=== PATIENT | female | born 1955 | race Caucasian/White ===

== ENCOUNTER 2024-06-21 18:42 | Inpatient (IN) | payer MEDICARE, SELFPAY ==
[2024-06-21] VITALS (11 sets, daily range): BP systolic 83–129; BP diastolic 48–67; BMI 27.6; BMI 26.3
[2024-06-21 14:17] LABS: COVID-19 Antigen Negative (Negative)
--- NOTE | 2024-06-21 14:46 | ED.GENMED ---
History of Present Illness
General
Chief Complaint: Fever
Source: patient
Exam Limitations: none
Time Seen by Provider: 06/21/24 14:34
History of Present Illness
History of Present Illness:
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 Temperature has been as high as 101.9. She notes a foul smelling urine but no dysuria. No history of kidney stone. She has a history of sick sinus syndrome and has a
pacemaker but not anticoagulated. 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. No cough chest pain or shortness of breath.
Phy Exam
Physical Exam
Physical Exam:
General: Well-appearing female no acute respiratory distress
HEENT: Normocephalic atraumatic
Heart: Regular rate and rhythm
Lungs: Clear no wheeze
Abdomen is soft but there is some tenderness over the flanks bilaterally
Extremities: No cyanosis or edema
Skin: Warm no rash
Course
Orders/Labs/Results
Orders:
Orders
06/21/24 13:54
COVID-19 Antigen Urgent
Source: Nasal Swab
Influenza A+B Rapid Molecular Urgent
[facility]EL[facility] Source: Nasal Swab
Specimen Description:
06/21/24 14:43
CT Abd/pelvis W Iv Cont Urgent
Comment:
Reason For Exam: flank pain, fever
0.9% Sodium Chloride 1000 ml [Nss] 1,000 ml IV BOLUS
Acetaminophen [Tylenol] 1,000 mg PO NOW STA
06/21/24 14:45
Blood Culture Q30M
MARIELLE Source: Blood/Venous
Specimen Description:
06/21/24 14:55
Complete Blood Count/With Diff Urgent
Comprehensive Metabolic Panel Urgent
Urinalysis Reflex To Culture Urgent
Date Specimen was Collected: 06/21/24
Time Specimen was Collected: 14:48
Urine Microscopic Reflex Cult Urgent
Urine Culture Urgent
MARIELLE Source: U
Specimen Description:
Date Specimen was Collected: 06/21/24
Time Specimen was Collected: 14:48
06/21/24 15:15
Blood Culture Q30M
MAR[facility]ELLE Source: Blood/Venous
Specimen Description:
06/21/24 17:26
0.9% Sodium Chloride 1000 ml [Nss] 1,000 ml IV BOLUS
CefTRIAXone [Rocephin] 1,000 mg IV NOW STA
Abnormal Lab Results
06/21/24
14:55
WBC 11.2 H 10^3/uL
(4.8-10.8)
RBC 4.00 L 10^6/uL
(4.20-5.40)
Hct 35.5 L %
(37.0-47.0)
MCH 31.5 H pg
(27.0-31.0)
Absolute Neuts (auto) 9.2 H 10^3/uL
(1.4-6.5)
Absolute Monos (auto) 0.8 H 10^3/uL
(0.1-0.6)
Neutrophils % 81.7 H %
(42.2-75.2)
Lymphocytes % 10.5 L %
(20.5-51.1)
BUN 18 H mg/dl
(7-17)
Glucose 102 H mg/dl
(70-99)
Urine Ketones 2+ A
(Negative)
Ur Occult Blood Reflex 4+ A
(Negative)
Urine Nitrite (Reflex) Positive A
(Negative)
Leukocyte Esterase Rfl 3+ A
(Negative)
Urine RBC 3-6 A /HPF
(0-2)
Urine WBC (Reflex) 80-90 A /HPF
(0-5)
Urine Bacteria (Reflex) Many A
(Negative)
Urine Albumin (Reflex) 2+ A
(Neg - Trace)
06/21/24 14:55
06/21/24 14:55
Vital Signs
Initial and Last Documented VS:
Initial Vital Signs
Temp Pulse Resp BP Pulse Ox
101.7 F H 89 18 129/66 98
06/21/24 13:46 06/21/24 13:46 06/21/24 13:46 06/21/24 13:46 06/21/24 13:46
Last Documented Vital Signs
Temp Pulse Resp BP Pulse Ox
98.4 F 89 18 83/50 95
06/21/24 17:30 06/21/24 13:46 06/21/24 13:46 06/21/24 16:00 06/21/24 16:59
MDM/Problems Addressed
Differential Diagnosis Includes:
Patient with fever flank pain myalgias. COVID and flu negative. Consider UTI versus pyelonephritis versus kidney stone
Labs pending cultures ordered Tylenol ordered for fever urinalysis with culture pending. CT ordered
*Critical Care Note
Total Time (30-74mins, 75-104mins- exclusive of procedures): Not Applicable
Update Note
Update Note:
CT demonstrates a ascending urinary tract infection and likely bilateral pyelonephritis. Blood pressures are on the softer side here with the 80s over 50s. Temperature improved after Tylenol second liter of fluid ordered Rocephin ordered.
Admitted to hospitalist for sepsis likely secondary to pyelonephritis
ED Attending Note
-
Portions of this chart may have been created with voice recognition software.� Occasional wrong word or��sound alike� substitutions may have occurred due to the inherent limitations of voice recognition software.
Discharge Plan
Departure
Patient Disposition: Admit
Date of Disposition: 06/21/24
Time of Disposition: 17:53
Presentation/result/management discussed w/ accepting MD/DO: Hospitalist
Discharge Problem:
Sepsis, Acute pyelonephritis
Prescriptions:
No Action
acetaminophen [Tylenol Extra Strength] 500 MG tablet
1,000 mg PO Q6HPRN PRN (Reason: pain)
lorazepam 0.5 MG tablet
0.5 mg PO PRN PRN (Reason: anxiety)
gabapentin 300 MG capsule
300 mg PO Q6H
rosuvastatin 10 MG tablet
10 mg PO DAILY
hydrocodone-acetaminophen [Vicodin] 1 EACH tablet
1 tab PO Q4H PRN (Reason: pain)
Referrals:
Berto Gross MD [Family Provider] -
Interventions
Interventions:
*Risk Screen - Suicide Last Done: 06/21/24 13:46
*General Assessment Last Done: 06/21/24 13:46
*Neglect/Abuse Screening Last Done: 06/21/24 13:46
*ED- Fall Risk Assessment Last Done: 06/21/24 14:26
*ED COVID-19 Vaccine History Last Done: 06/21/24 13:51
ED- Neurological Assessment Last Done: 06/21/24 14:26
ED-Skin Assessment Last Done: 06/21/24 14:26
Discharge Date and Time
Print Language: CYPRIOT
[2024-06-21] MEDS: TYLENOL 1000 MG PO (14:52)
[2024-06-21] MEDS: NSS 1000 IV ×2 (15:02→19:02)
[2024-06-21 15:12] LABS: % Basophils 0.4 % (0-2); % Eosinophils 0.2 % (0-6); % Immature Granulocytes 0.3 % (0-0.5); % Lymphocytes 10.5 % (20.5-51.1); % Monocytes 6.9 % (1.7-9.3); % Neutrophils 81.7 % (42.2-75.2); Absolute Lymphocytes 1.2 10^3/uL (1.2-3.4); Absolute Monocytes 0.8 10^3/uL (0.1-0.6); Absolute Neutrophils 9.2 10^3/uL (1.4-6.5); Hematocrit 35.5 % (37.0-47.0); Hemoglobin 12.6 g/dL (12.0-16.0); Mean Corp Hgb Conc. 35.5 g/dL (33.0-37.0); Mean Corpuscular Hgb 31.5 pg (27.0-31.0); Mean Corpuscular Volume 88.8 fL (81.0-99.0); Mean Platelet Volume 9.5 fL (7.4-10.4); Nucleated Red Blood Cells % 0 %; Platelet Count 204 10^3/uL (130-400); Red Cell Dist. Width 13.7 % (11.5-14.5); White Blood Cell Count 11.2 10^3/uL (4.8-10.8)
[2024-06-21 15:22] LABS: Urine Albumin 2+ (Neg - Trace); Urine Bilirubin Negative (Negative); Urine Character Clear (Clear); Urine Color Yellow; Urine Glucose Negative (Negative); Urine Ketone 2+ (Negative); Urine Leukocyte 3+ (Negative); Urine Nitrite Positive (Negative); Urine Occult Blood 4+ (Negative); Urine Urobilinogen Negative (Neg - 1+)
[2024-06-21 15:30] LABS: Urine Bacteria Many (Negative); Urine Squamous Cell 0-2 /LPF (Few); Urine White Cell 80-90 /HPF (0-5)
[2024-06-21 15:38] LABS: ALT (SGPT) 18 U/L (0-35); AST (SGOT) 23 U/L (14-36); Albumin 4.7 g/dl (3.5-5.0); Alkaline Phosphatase 90 U/L (38-126); Blood Urea Nitrogen 18 mg/dl (7-17); Calcium 9.5 mg/dl (8.4-10.2); Carbon Dioxide 24 mmol/L (22-30); Chloride 102 mmol/L (98-107); Estimated Creatinine Clearance 76 ml/min; Glucose 102 mg/dl (70-99); Potassium 3.5 mmol/L (3.5-5.1); Sodium 136 mmol/L (135-145); Total Bilirubin 0.8 mg/dl (0.2-1.3); Total Protein 7.2 g/dl (6.3-8.2); eGFR > 60.00
[2024-06-21] MEDS: ROCEPHIN 1000 MG IV (17:33)
--- NOTE | 2024-06-21 17:56 | HPS.HSE ---
Family Physician
-
Family Physician: Berto Gross
Chief Complaint
-
fever, myalgias and flank pain
History of Present Illness
Patient is a 68-year-old female with past medical history significant for hyperlipidemia, hypotension, sick sinus syndrome and anxiety who presented to [facility] ED for evaluation of fever, myalgias and flank pain. Patient reports that 2
days ago she started with bilateral lower back pain, fever, body aches, foul smelling urine and cloudy urine getting significantly worse last night while she was at work. Patient denies any cough, shortness of breath, chest pain, nausea, vomiting,
constipation or diarrhea.
Medical History
Past Medical History
Past Medical History: Reports Other
Additional Past Medical History:
hyperlipidemia
hypotension
sick sinus syndrome
anxiety
Hx kidney stone
Hx frequent UTIs
Past Surgical History: Reports Other
Additional Past Surgical History:
hysterectomy (1998)
bladder suspension (1998)
tonsillectomy (2004)
uvulectomy (2004)
cervical discectomy and fusion (2014)
pacemaker
bilateral total knee replacements
Social History
Tobacco: Smoker (0.5 pack per day for 30 years (15 pack year history))
Alcohol: None
Drug: None
Living: With Family
Employment: Employed
Family History
Family History: Other (Mother: AVM; Brother: AVM)
Allergies / Home Medications
Allergies reflects when Allergies were last updated in [employer].
Home Medications with original date entered in [employer]
Allergy/Medication List:
Allergies
Allergy/AdvReac Type Severity Reaction Status Date / Time
irbesartan Allergy joint pain Verified 06/21/24 13:51
simvastatin Allergy Unknown Verified 06/21/24 13:51
Home Medications
rosuvastatin 10 mg tablet 10 mg PO DAILY 01/01/15
Prevagen 1 cap PO DAILY 06/21/24
acetaminophen 325 mg tablet (Tylenol) 650 mg PO Q6HPRN PRN mild pain/fever 06/21/24
docusate sodium 100 mg tablet (Stool Softener) 100 mg PO DAILY 06/21/24
esomeprazole magnesium 20 mg capsule,delayed release (Nexium 24HR) 20 mg PO DAILY 06/21/24
olmesartan 20 mg-hydrochlorothiazide 12.5 mg tablet 1 tab PO DAILY 06/21/24
Review of Systems
-
History Source: Patient
Constitutional: Reports Fever and Chills
EENT: Reports No Symptoms
Respiratory: Reports No Symptoms
Cardiac: Reports No Symptoms
Abdomen/GI: Reports No Symptoms
: Reports Flank Pain and Dark Urine (foul smelling and cloudy)
Musculoskeletal: Reports No Symptoms
Skin: Reports No Symptoms
Neurological: Reports No Symptoms
Endocrine: Reports No Symptoms
Hematologic/Lymphatic: Reports No Symptoms
Psych: Reports No Symptoms
Physical Exam
Vital Signs
Vital Signs
Temp Pulse Resp BP Pulse Ox
98.4 F 89 18 83/50 95
06/21/24 17:30 06/21/24 13:46 06/21/24 13:46 06/21/24 16:00 06/21/24 16:59
Physical Exam
General: Well Developed, Well Nourished, No Apparent Distress, Comfortable and Conversant
HEENT: NormoCephalic, Moist mucous membranes, Atraumatic, Fritch Conjunctivae, Nose Appears Normal and Ears Appear Normal
Respiratory: Clear and Non Labored Respirations
Cardiac: S1/S2 and Regular Rhythm
Breast: Deferred by me
GI: Soft, Non Tender, Non Distended and Normal Bowel Sounds; No Organomegaly
Rectal: Deferred by Provider
Genito-urinary: Costovertebral angle tend
Musculoskeletal: No Clubbing, No Cyanosis and No Edema
Skin: IV/Catheter Site
Neuro: Awake, Alert, AO x 3 and Nonfocal/grossly intact
Psych: Calm and Intact Judgment/Insight
Laboratory Results
-
06/21/24 14:55
06/21/24 14:55
Laboratory Results
Total Bilirubin 0.8 mg/dl (0.2-1.3) 06/21/24 14:55
AST 23 U/L (14-36) 06/21/24 14:55
ALT 18 U/L (0-35) 06/21/24 14:55
Alkaline Phosphatase 90 U/L (38-126) 06/21/24 14:55
Data Reviewed
-
CT Scan: Report Reviewed by me (Abd/Pel CT: 1. Findings suggesting cystitis with bilateral ascending urinary tract infection, and possible developing pyelonephritis bilaterally.)
Lab Data: Labs Reviewed by me (WBC 11.2, Neut 81.7)
Impression/Plan
-
IMPRESSION/PLAN:
#sepsis likely 2/2 pyelonephritis
WBC 11.2, Neut 81.7
UA: indicative of UTI
Urine Cx: pending
Covid: negative
Influenza: negative
Abd/Pel CT: 1. Findings suggesting cystitis with bilateral ascending urinary tract infection, and possible developing pyelonephritis bilaterally.
- Admit to telemetry
- IV fluids
- IV antibiotics
- supportive care
#hyperlipidemia
- continue rosuvastatin
#hypertension
- continue olmesartan-HCTZ
#GERD
- continue Nexium
#sick sinus syndrome
s/p pacemaker
#anxiety
#Hx hypotension
#Hx kidney stone
#Hx frequent UTIs
Code status: full code
DVT prophylaxis: Lovenox sq
--- NOTE | 2024-06-21 18:44 | W.PN.UPDATE ---
Update Note
Progress Note Update
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
68-year-old female past medical history of kidney stone, frequent UTIs,�sick sinus syndrome status post pacemaker, hypotension, GERD, HLD presenting with fevers, foul-smelling urine, flank pain, body aches.
Patient is febrile with temperature of 101, blood pressure 83/50.� Leukocytosis.
CT abdomen pelvis shows status with bilateral ascending urinary tract infection, possible developing pyelonephritis bilaterally.
Presentation consistent with sepsis secondary to UTI/bilateral pyelonephritis.
IV fluids, check urine culture, blood cultures.� Ceftriaxone.
--- NOTE | 2024-06-21 21:51 | PTCARENOTE ---
Rec'd pt from ER. Walked from stretcher to bed. NSS infusing at 100ml/hr as ordered. Pain 4/10 in bilateral flanks but pt does not wish to take medication at this time. oriented to room. Call ramires in reach
[2024-06-22] VITALS (9 sets, daily range): BP systolic 82–101; BP diastolic 35–54
[2024-06-22] MEDS: TYLENOL 650 MG PO ×4 (04:00→21:00)
[2024-06-22 04:34] LABS: Hematocrit 30.3 % (37.0-47.0); Hemoglobin 10.8 g/dL (12.0-16.0); Mean Corp Hgb Conc. 35.6 g/dL (33.0-37.0); Mean Corpuscular Hgb 31.8 pg (27.0-31.0); Mean Corpuscular Volume 89.1 fL (81.0-99.0); Mean Platelet Volume 9.7 fL (7.4-10.4); Platelet Count 172 10^3/uL (130-400); Red Cell Dist. Width 13.6 % (11.5-14.5); White Blood Cell Count 9.1 10^3/uL (4.8-10.8)
[2024-06-22] MEDS: NSS 1000 IV ×4 (05:48→22:37)
[2024-06-22 06:09] LABS: Blood Urea Nitrogen 17 mg/dl (7-17); Calcium 8.3 mg/dl (8.4-10.2); Carbon Dioxide 22 mmol/L (22-30); Chloride 108 mmol/L (98-107); Estimated Creatinine Clearance 76 ml/min; Glucose 110 mg/dl (70-99); Potassium 3.3 mmol/L (3.5-5.1); Sodium 136 mmol/L (135-145); eGFR > 60.00
[2024-06-22] MEDS: PROTONIX 40 MG PO (08:17)
[2024-06-22] MEDS: CRESTOR 10 MG PO (08:17)
[2024-06-22] MEDS: COLACE 100 MG PO (08:17)
--- NOTE | 2024-06-22 11:09 | W.PN.HOSP.TC ---
Today's Communication/Plan
-
see outlined plan
Assessment / Plan
Assessment / Plan
Assessment:
Complicated UTI in female
Sepsis POA (leukocytosis, fever, tachypnea)
- CT: Findings suggesting cystitis with bilateral ascending urinary tract infection, and possible developing pyelonephritis bilaterally.
- s/p sepsis protocol IVF in ER, give additional bolus now and resume maintenance IVF
- continue Rocephin, day 2, pending urine and blood cultures
Hypokalemia - replete prn
HLD - statin
Essential HTN
- hold olmesartan-HCTZ
GERD - PPI
SSS s/p PPM
Hx of Anxiety
DVT ppx: Lovenox
Code: Full
Anticipated Discharge: 24 - 48 hours
Subjective/Interval History
-
Date of Service: June 22, 2024
reports urinary frequency, but no pain
no fevers
Objective Data
-
Labs:
Laboratory Results
06/22/24
04:19
WBC 9.1
Hgb 10.8 L
Hct 30.3 L
Plt Count 172
Sodium 136
Potassium 3.3 L
Chloride 108 H
Carbon Dioxide 22
BUN 17
Creatinine 0.7
Glucose 110 H
Calcium 8.3 L
Vital Signs:
Vital Signs
Temp Pulse Resp BP Pulse Ox
98.1 F 62 18 91/49 96
06/22/24 07:55 06/22/24 07:55 06/22/24 07:55 06/22/24 07:55 06/22/24 08:40
I&O
06/21/24 06/22/24 06/23/24
06:59 06:59 06:59
Intake Total 1480 / 1480
Balance 1480 / 1480
Physical Exam
-
General: No Apparent Distress
HEENT: Normocephalic and Atraumatic
Respiratory: Negative Wheezes
Cardiac: Regular Rhythm and S1/S2
GI: Soft and Nontender
Genito-urinary: No Costovertebral Tender
Neuro: AO x 3
Psych: Calm
Data Reviewed
-
Total Time Spent with Patient (in minutes): 42
Labs: Labs Reviewed by me
[2024-06-22] MEDS: KCL 40 MEQ PO (11:15)
[2024-06-22] MEDS: NSS IV (12:26)
[2024-06-22] MEDS: STERILE WATER FOR INJECTION 10 ML IV (15:28)
[2024-06-22] MEDS: ROCEPHIN 1000 MG IV (15:28)
[2024-06-22] MEDS: LOVENOX 40 MG SC (17:53)
[2024-06-22 18:44] LABS: Hepatitis C Antibody Negative (Negative)
[2024-06-23] MEDS: TYLENOL 650 MG PO ×2 (01:32→07:21)
[2024-06-23 03:09] VITALS: BP 97/53
[2024-06-23 07:00] VITALS: BP 112/62
[2024-06-23 08:24] LABS: Hematocrit 29.6 % (37.0-47.0); Hemoglobin 10.5 g/dL (12.0-16.0); Mean Corp Hgb Conc. 35.5 g/dL (33.0-37.0); Mean Corpuscular Hgb 31.5 pg (27.0-31.0); Mean Corpuscular Volume 88.9 fL (81.0-99.0); Mean Platelet Volume 10.3 fL (7.4-10.4); Platelet Count 158 10^3/uL (130-400); Red Blood Cell Count 3.33 10^6/uL (4.20-5.40); Red Cell Dist. Width 13.6 % (11.5-14.5); White Blood Cell Count 5.2 10^3/uL (4.8-10.8)
[2024-06-23] MEDS: COLACE PO (08:38)
[2024-06-23] MEDS: PROTONIX 40 MG PO (08:39)
[2024-06-23] MEDS: CRESTOR 10 MG PO (08:39)
[2024-06-23] MEDS: NSS 1000 IV (08:43)
[2024-06-23 09:14] LABS: Blood Urea Nitrogen 9 mg/dl (7-17); Carbon Dioxide 19 mmol/L (22-30); Chloride 114 mmol/L (98-107); Estimated Creatinine Clearance 88 ml/min; Glucose 107 mg/dl (70-99); Potassium 3.7 mmol/L (3.5-5.1); Sodium 141 mmol/L (135-145); eGFR > 60.00
--- NOTE | 2024-06-23 10:15 | CM ---
Addendum entered by Marta Case 06/23/24 14:18:
IMM completed.
Original Note:
Patient seen bedside.
Patient lives in a 2 story home with 2 steps to enter.
Patients sons live with her.
Patient independent prior to admission, drives and works.
Patient denies home care needs.
Patient drove to the hospital
PCP: [facility]
Pharmacy: [facility]
Plan: home no needs.
[2024-06-23 11:00] VITALS: BP 164/78
--- NOTE | 2024-06-23 11:50 | W.PN.HOSP.TC ---
Today's Communication/Plan
-
dc home
Assessment / Plan
Assessment / Plan
Assessment:
Complicated E. coli UTI in female
Sepsis POA (leukocytosis, fever, tachypnea)
- CT: Findings suggesting cystitis with bilateral ascending urinary tract infection, and possible developing pyelonephritis bilaterally.
- s/p sepsis protocol IVF in ER, give additional bolus now and resume maintenance IVF
- dc on Cefdinir to complete 2 week course
Hypokalemia - replete prn
HLD - statin
Essential HTN
- resume olmesartan-HCTZ in 48 hours
GERD - PPI
SSS s/p PPM
Hx of Anxiety
DVT ppx: Lovenox
Code: Full
More than 30 minutes spent in discharge including
Final examination of the patient
Summarizing hospital stay
Instructions for continuing care to all relevant caregivers
Preparation of discharge records, prescriptions, and referral forms
Total time spent (in minutes): 42
Anticipated Discharge: Today
Subjective/Interval History
-
Date of Service: June 23, 2024
no complaints at present
Objective Data
-
Labs:
Laboratory Results
06/23/24
07:11
WBC 5.2
Hgb 10.5 L
Hct 29.6 L
Plt Count 158
Sodium 141
Potassium 3.7
Chloride 114 H
Carbon Dioxide 19 L
BUN 9
Creatinine 0.6
Glucose 107 H
Calcium 8.0 L
Vital Signs:
Vital Signs
Temp Pulse Resp BP Pulse Ox
98.4 F 65 16 164/78 97
06/23/24 11:00 06/23/24 11:00 06/23/24 11:00 06/23/24 11:00 06/23/24 11:00
I&O
06/22/24 06/23/24 06/24/24
06:59 06:59 06:59
Intake Total 1480 / 1480
Balance 1480 / 1480
Physical Exam
-
General: No Apparent Distress
HEENT: Normocephalic and Atraumatic
Respiratory: Negative Wheezes
Cardiac: Regular Rhythm and S1/S2
GI: Soft
Genito-urinary: No Costovertebral Tender
Musculoskeletal: No Edema
Neuro: AO x 3
Psych: Calm
Data Reviewed
-
Total Time Spent with Patient (in minutes): 42
Labs: Labs Reviewed by me
--- NOTE | 2024-06-23 11:57 | W.DS.TRANS ---
DC Summary - [employer]
-
Discharge Instructions:
Discharge Diagnosis/Procedures complicated UTI with pyelonephritis, sepsis
Diet Regular
Activity As tolerated
Instructions:
Stand-Alone Forms:
Changes to Home Medications: No
Discharge Medications:
DC Medications w/original date entered in [employer]
rosuvastatin 10 mg tablet 10 mg PO DAILY High Cholesterol 01/01/15
Prevagen 1 cap PO DAILY 06/21/24
acetaminophen 325 mg tablet (Tylenol) 650 mg PO Q6HPRN PRN mild pain/fever 06/21/24
docusate sodium 100 mg tablet (Stool Softener) 100 mg PO DAILY Constipation 06/21/24
esomeprazole magnesium 20 mg capsule,delayed release (Nexium 24HR) 20 mg PO DAILY Gastrointestinal Issue 06/21/24
olmesartan 20 mg-hydrochlorothiazide 12.5 mg tablet 1 tab PO DAILY Blood Pressure 06/21/24
cefdinir 300 mg capsule 300 mg PO BID #24 caps 06/23/24
Home Medication Changes
Pending Results: No
Total time spent discharging patient (in min): 42
== END 2024-06-23 12:20 | disposition home or self-care (01) | DRG 872 ==
LOC: 4 EAST ACU 18:42
PROVIDERS: Emergency Medicine; Nurse Practitioner Family; Physician Assistant; ADMITTING PHYSICIAN Hospitalist; ATTENDING PHYSICIAN Internal Medicine; EMERGENCY PHYSICIAN Student in an Organized Health Care Education/Training Program; FAMILY PHYSICIAN Family Medicine
DX: A41.51 Sepsis due to Escherichia coli [E. coli] (principal); N10 Acute pyelonephritis; I95.9 Hypotension, unspecified; K21.9 Gastro-esophageal reflux disease without esophagitis; I10 Essential (primary) hypertension; E87.6 Hypokalemia; E78.5 Hyperlipidemia, unspecified; F41.9 Anxiety disorder, unspecified; F17.210 Nicotine dependence, cigarettes, uncomplicated; Z96.653 Presence of artificial knee joint, bilateral; Z95.0 Presence of cardiac pacemaker; Z87.440 Personal history of urinary (tract) infections; Z87.442 Personal history of urinary calculi; Z88.8 Allergy status to other drugs, medicaments and biological substances; Z90.710 Acquired absence of both cervix and uterus
CPT/HCPCS: 74177; 80048; 80053; 81003; 81015; 85025; 85027; 86803; 87040; 87077; 87086; 87186; 87502; 87811; 96361; 96374; 99284; 99406; Q9967

== ENCOUNTER 2024-07-07 04:33 | Inpatient (IN) | payer MEDICARE, SELFPAY ==
[2024-07-07] VITALS (56 sets, daily range): BP systolic 25–155; BP diastolic 39–106; BMI 25.6
[2024-07-07] MEDS: ZOFRAN 4 MG IV (01:02)
[2024-07-07] MEDS: NSS 1000 IV ×3 (01:03→16:24)
[2024-07-07] MEDS: MORPHINE SULFATE 4 MG IV (01:09)
[2024-07-07 01:16] LABS: % Basophils 0.5 % (0-2); % Eosinophils 0.9 % (0-6); % Immature Granulocytes 0.6 % (0-0.5); % Lymphocytes 10.5 % (20.5-51.1); % Monocytes 4.2 % (1.7-9.3); % Neutrophils 83.3 % (42.2-75.2); Absolute Basophils 0.1 10^3/uL (0-0.2); Absolute Eosinophils 0.2 10^3/uL (0-0.7); Absolute Immature Granulocytes 0.1 10^3/uL (0-0.05); Absolute Lymphocytes 1.7 10^3/uL (1.2-3.4); Absolute Monocytes 0.7 10^3/uL (0.1-0.6); Absolute Neutrophils 13.8 10^3/uL (1.4-6.5); Hematocrit 37.4 % (37.0-47.0); Mean Corp Hgb Conc. 34.8 g/dL (33.0-37.0); Mean Corpuscular Hgb 31.1 pg (27.0-31.0); Mean Corpuscular Volume 89.5 fL (81.0-99.0); Mean Platelet Volume 9.6 fL (7.4-10.4); Nucleated Red Blood Cells % 0 %; Platelet Count 356 10^3/uL (130-400); Red Blood Cell Count 4.18 10^6/uL (4.20-5.40); Red Cell Dist. Width 14.3 % (11.5-14.5); White Blood Cell Count 16.6 10^3/uL (4.8-10.8)
--- NOTE | 2024-07-07 01:23 | ED.GENMED ---
History of Present Illness
General
Chief Complaint: Abdominal Pain
Source: patient and family
Time Seen by Provider: 07/07/24 01:05
History of Present Illness
History of Present Illness:
Pleasant 68-year-old female presents to the emergency department with diffuse abdominal pain with vomiting. She states that she ate at a diner and felt sick several hours later. She was feeling fine up until that point. No sick contacts.
Review of Systems
Review of Systems
Allergies reviewed?: Yes
All Other Systems: ROS reviewed and negative except as documented in HPI and ROS
Constitutional: Reports no symptoms
EENT: Reports no symptoms
Respiratory: Reports no symptoms
Cardiac: Reports no symptoms
ABD/GI: Reports abdominal pain, nausea and vomiting
: Reports no symptoms
Musculoskeletal: Reports no symptoms
Skin: Reports no symptoms
Neurological: Reports no symptoms
Endocrine: Reports no symptoms
Hematologic/Lymphatic: Reports no symptoms
Psychiatric: Reports no symptoms
Phy Exam
General Physical Exam
General Presentation: moderate distress
General age: appears stated age
General Skin: warm and dry
General Habitus: normal
General Mental: alert
General Hydration: appears well hydrated
ENT Exam
ENT Exam: EOMI, pharynx normal, neck supple and normocephalic
Eye Exam
Eye Exam: PERRL, cornea clear and conjunctiva normal
Cardiovascular Exam
Cardiovascular Exam: regular rate/rhythm, no edema, no murmur and normal peripheral pulses
Pulmonary Exam
Pulmonary Exam: lungs clear, no respiratory distress, no wheezing and no cough
Gastrointestinal Exam
Gastrointestinal Exam: normal bowel sounds, soft, no organomegaly, no pulsatile mass, non distended, rebound and tender
Palpation: right lower quadrant: Moderate tenderness
Neurological Exam
Neurological Exam: alert and oriented x3
Musculoskeletal Exam
Musculoskeletal Exam: full ROM and neuro vasc intact
Skin Exam
Skin Exam: normal color and warm/dry
Psychiatric Exam
Psychiatric Exam: normal mood/affect
Course
Orders/Labs/Results
Orders:
Orders
07/07/24 00:47
Ondansetron Injectable [Zofran] 4 mg .ROUTE .STK-MED ONE
07/07/24 01:02
Ondansetron Injectable [Zofran] 4 mg IV NOW STA
07/07/24 01:03
0.9% Sodium Chloride 1000 ml [Nss] 1,000 ml IV BOLUS
07/07/24 01:04
Complete Blood Count/With Diff Urgent
Comprehensive Metabolic Panel Urgent
Lactic Acid Urgent
Lipase Urgent
07/07/24 01:08
Morphine Sulfate 4 mg .ROUTE .STK-MED ONE
07/07/24 01:09
Morphine Sulfate 4 mg IV NOW STA
07/07/24 01:59
CT Abd/pelvis W Iv Cont Urgent
Comment:
Reason For Exam: diffuse abd pain
07/07/24 02:08
HYDROmorphone [Dilaudid] 0.5 mg .ROUTE .STK-MED ONE
07/07/24 02:09
HYDROmorphone [Dilaudid] 0.5 mg IV NOW STA
07/07/24 02:14
Urinalysis Reflex To Culture Urgent
Date Specimen was Collected: 07/07/24
Time Specimen was Collected: 02:10
Urine Microscopic Reflex Cult Urgent
07/07/24 03:32
Piperacillin/Tazo 4.5 Gram [Zosyn] 4.5 gram in 100 ml IV NOW
Abnormal Lab Results
07/07/24 07/07/24
01:04 02:14
WBC 16.6 H 10^3/uL
(4.8-10.8)
RBC 4.18 L 10^6/uL
(4.20-5.40)
MCH 31.1 H pg
(27.0-31.0)
Abs Immat Gran (auto) 0.1 H 10^3/uL
(0-0.05)
Absolute Neuts (auto) 13.8 H 10^3/uL
(1.4-6.5)
Absolute Monos (auto) 0.7 H 10^3/uL
(0.1-0.6)
Immature Gran % 0.6 H %
(0-0.5)
Neutrophils % 83.3 H %
(42.2-75.2)
Lymphocytes % 10.5 L %
(20.5-51.1)
Chloride 108 H mmol/L
(98-107)
Carbon Dioxide 21 L mmol/L
(22-30)
BUN 22 H mg/dl
(7-17)
Glucose 130 H mg/dl
(70-99)
Ur Occult Blood Reflex 2+ A
(Negative)
Urine RBC 7-10 A /HPF
(0-2)
Urine Bacteria (Reflex) Few A
(Negative)
07/07/24 01:04
07/07/24 01:04
Vital Signs
Initial and Last Documented VS:
Initial Vital Signs
Temp Pulse Resp BP Pulse Ox
98.2 F 61 34 155/106 98
07/07/24 00:25 07/07/24 00:25 07/07/24 00:25 07/07/24 00:25 07/07/24 00:25
Last Documented Vital Signs
Temp Pulse Resp BP Pulse Ox
98.2 F 61 34 155/106 98
07/07/24 00:25 07/07/24 00:25 07/07/24 00:25 07/07/24 00:25 07/07/24 00:25
*Critical Care Note
Total Time (30-74mins, 75-104mins- exclusive of procedures): Not Applicable
Update Note
Update Note:
CT abdomen and pelvis with contrast
IMPRESSION:
Findings suspicious for early acute appendicitis
Appendix is dilated, measuring up to 13 mm in diameter, and partially fluid distended
Minimal infiltration of the periappendiceal fat, axial images 63 through 65 and coronal images 30-32 best demonstrates
No signs of perforation or abscess formation. No other acute intra-abdominal process
Partially visualized cardiac pacemaker
Moderate stool burden, most pronounced in the right colon. Correlate for history of constipation
Colonic diverticulosis without signs of diverticulitis
ED Attending Note
-
Portions of this chart may have been created with voice recognition software.� Occasional wrong word or��sound alike� substitutions may have occurred due to the inherent limitations of voice recognition software.
Discharge Plan
Departure
Patient Disposition: Admit
Date of Disposition: 07/07/24
Time of Disposition: 03:31
Presentation/result/management discussed w/ accepting MD/DO: Kendall
Condition: Fair
Discharge Problem:
Acute appendicitis
Prescriptions:
No Action
rosuvastatin 10 MG tablet
10 mg PO DAILY
acetaminophen [Tylenol] 325 mg Tablet
650 mg PO Q6HPRN PRN (Reason: mild pain/fever)
docusate sodium [Stool Softener] 100 mg Tablet
100 mg PO DAILY
esomeprazole magnesium [Nexium 24HR] 20 mg Capsule,Delayed Release(Dr/Ec)
20 mg PO DAILY
olmesartan-hydrochlorothiazide 20-12.5 mg Tablet
1 tab PO DAILY
Prevagen capsule
1 cap PO DAILY
cefdinir 300 mg capsule
300 mg PO BID Qty: 24 0RF
acyclovir [Zovirax] 5 % cream
See Rx Instructions .ROUTE .COMPLEX Qty: 5 0RF
Rx Instructions:
1 applic topically 5 times a day x 4 days
Referrals:
Berto Gross MD [Family Provider] -
Interventions
Interventions:
*Risk Screen - Suicide Last Done: 07/07/24 00:25
*General Assessment Last Done: 07/07/24 00:50
*Neglect/Abuse Screening Last Done: 07/07/24 00:50
*ED- Fall Risk Assessment Last Done: 07/07/24 00:50
*ED COVID-19 Vaccine History Last Done: 07/07/24 00:50
[facility]-Oawpps-Hflvvivlov Assessment Last Done: 07/07/24 02:03
Discharge Date and Time
Print Language: HEBREW
[2024-07-07 01:35] LABS: ALT (SGPT) 24 U/L (0-35); AST (SGOT) 23 U/L (14-36); Albumin 4.8 g/dl (3.5-5.0); Alkaline Phosphatase 108 U/L (38-126); Blood Urea Nitrogen 22 mg/dl (7-17); Calcium 10.1 mg/dl (8.4-10.2); Carbon Dioxide 21 mmol/L (22-30); Chloride 108 mmol/L (98-107); Estimated Creatinine Clearance 88 ml/min; Glucose 130 mg/dl (70-99); Potassium 4.3 mmol/L (3.5-5.1); Sodium 142 mmol/L (135-145); Total Bilirubin 0.4 mg/dl (0.2-1.3); Total Protein 7.3 g/dl (6.3-8.2); eGFR > 60.00
[2024-07-07 01:57] LABS: Lactic Acid 1.5 mmol/L (0.7-2.0); Lipase 245 U/L (23-300)
[2024-07-07] MEDS: DILAUDID 0.5 MG IV ×4 (02:09→21:33)
[2024-07-07 02:23] LABS: Urine Albumin Negative (Neg - Trace); Urine Bilirubin Negative (Negative); Urine Character Clear (Clear); Urine Color Yellow; Urine Glucose Negative (Negative); Urine Ketone Negative (Negative); Urine Leukocyte Negative (Negative); Urine Nitrite Negative (Negative); Urine Occult Blood 2+ (Negative); Urine Specific Gravity 1.025 (<1.030); Urine Urobilinogen Negative (Neg - 1+)
[2024-07-07 03:00] LABS: Urine Squamous Cell 16-20 /LPF (Few)
[2024-07-07 03:01] LABS: Urine Bacteria Few (Negative); Urine Hyaline Cast 0-2 /LPF (0-2); Urine White Cell 0-2 /HPF (0-5)
[2024-07-07] MEDS: ZOSYN 100 IV (03:45)
--- NOTE | 2024-07-07 04:29 | HPS.HSE ---
Addendum entered and electronically signed by Arnaud Burns MD 07/07/24 10:28:
I saw and examined the patient independently.
The Carbon Sequestration Plant Engineer's note was reviewed and I agree with the note, assessment and plan except where noted below.
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
stranding.
Her blood pressure is soft, her temperature is 99.9. Her exam shows somewhat diffuse tenderness worse in the lower quadrants concerning for acute, likely perforated appendicitis.
Will plan for a laparoscopic appendectomy and possible drain placement.
Risks/Benefits/Alternatives, expected postoperative course and possible complications (bleeding, infection, injury to surrounding structures, acute/chronic pain) discussed at length. Patient wishes to proceed with surgery. All questions answered.
Consent obtained.
I spent 60 minutes in total for the care of this patient today including direct patient care and counseling, reviewing labs, imaging, coordination of care, as well as documentation.
Original Note:
Family Physician
-
Family Physician: Berto Gross
Chief Complaint
-
Abdominal pain
History of Present Illness
Patient is a 68 year old female with a past medical history significant for hyperlipidemia, hypertension, sick sinus syndrome and anxiety who presents to the emergency department with diffuse abdominal pain and vomiting. Patient reports that she ate
dinner and felt sick afterward around 6:00/6:30. She reports that she was feeling well up to that time and had even been walking around [place] during the day. Patient denies sick contacts. Patient reports nausea and vomiting. Denies
cough, shortness of breath, chest pain, constipation or diarrhea.
In the emergency department, WBC elevated 16.6.
- CT Abdomen/Pelvis with contrast, preliminary read - findings suspicious for early acute appendicitis. Appendix is dilated, measuring up to 13 mm in diameter, and partially fluid distended.
Minimal infiltration of the periappendiceal fat, axial images 63 through 65 and coronal images 30-32 best demonstrates
No signs of perforation or abscess formation. No other acute intra-abdominal process
Partially visualized cardiac pacemaker
Moderate stool burden, most pronounced in the right colon. Correlate for history of constipation
Colonic diverticulosis without signs of diverticulitis
Patient received 1 liter NSS, Zofran 4 mg IV x 1, Morphine 4 mg IV x 1, Dilaudid 0.5 mg IV x 1, Zosyn 4.5 g IV x 1.
Per ED provider, case discussed with Dr. Argueta, General Surgery, who will accept the patient to his service. Patient NPO, IV fluids and IV antibiotics.
Medical History
Past Medical History
Past Medical History: Reports HTN, Psychiatric (Anxiety) and Other (Hyperlipidemia, Sick sinus syndrome, Hx kidney stones, Hx frequent UTIs )
Past Surgical History: Reports Cardiac (Pacemaker ([employer] per patient)), Gynocological (Hysterectomy, 1998), Orthopedic (Cervical discectomy and fusion, 2014; Bilateral knee replacements), Tonsilectomy (2004), Urological (Bladder
suspension, 1998) and Other (Uvulectomy)
Social History
Tobacco: Smoker (0.5 pack/day for 30 years (15 pack year hx))
Alcohol: Occasional
Drug: None
Living: With Family
Employment: Employed
Family History
Family History: Other (Mother - AVM; Brother -AVM)
Allergies / Home Medications
Allergies reflects when Allergies were last updated in [facility].
Home Medications with original date entered in [facility]
Allergy/Medication List:
Patient Allergies
Allergy/AdvReac Type Severity Reaction Status Date / Time
irbesartan Allergy joint pain Verified 07/07/24 00:25
simvastatin Allergy Unknown Verified 07/07/24 00:25
Home Medications
�Medication �Instructions �Recorded
rosuvastatin 10 mg tablet 10 mg PO DAILY High Cholesterol 01/01/15
Prevagen 1 cap PO DAILY 06/21/24
acetaminophen 325 mg tablet 650 mg PO Q6HPRN PRN mild 06/21/24
(Tylenol) pain/fever
docusate sodium 100 mg tablet 100 mg PO DAILY Constipation 06/21/24
(Stool Softener)
esomeprazole magnesium 20 mg 20 mg PO DAILY Gastrointestinal 06/21/24
capsule,delayed release (Nexium Issue
24HR)
olmesartan 20 1 tab PO DAILY Blood Pressure 06/21/24
mg-hydrochlorothiazide 12.5 mg
tablet
jmxoqyn-kywkpqjponkcd-xufsjuyo 250 2 tab PO Q6H PRN migraine/pain 07/07/24
mg-250 mg-65 mg tablet (Excedrin
Migraine)
Review of Systems
-
Constitutional: Reports No Symptoms
EENT: Reports No Symptoms
Respiratory: Reports No Symptoms
Cardiac: Reports No Symptoms
Abdomen/GI: Reports Abdominal Pain (diffuse abdominal pain), Nausea and Vomiting
: Reports No Symptoms
Musculoskeletal: Reports No Symptoms
Skin: Reports No Symptoms
Neurological: Reports No Symptoms
Endocrine: Reports No Symptoms
Hematologic/Lymphatic: Reports No Symptoms
Psych: Reports No Symptoms
Physical Exam
Vital Signs
Vital Signs
Temp Pulse Resp BP Pulse Ox
98.3 F 75 18 139/83 97
07/07/24 03:43 07/07/24 03:43 07/07/24 03:43 07/07/24 03:43 07/07/24 03:43
Physical Exam
General: Well Nourished, Conversant and Appears in Distress (mild distress, pain medication effective)
HEENT: Moist mucous membranes and PERRLA
Respiratory: Clear and Non Labored Respirations
Cardiac: S1/S2 and Regular Rhythm
Breast: Deferred by me
GI: Normal Bowel Sounds and Tender (tender throughout); No Non Distended
Rectal: Deferred by Provider
Musculoskeletal: No Clubbing, No Cyanosis and No Edema
Skin: Warm, Dry and IV/Catheter Site (intact)
Neuro: Awake, Alert and AO x 3
Psych: Calm and Intact Judgment/Insight
Laboratory Results
-
07/07/24 01:04
07/07/24 01:04
Laboratory Results
Lactic Acid 1.5 mmol/L (0.7-2.0) 07/07/24 01:04
Total Bilirubin 0.4 mg/dl (0.2-1.3) 07/07/24 01:04
AST 23 U/L (14-36) 07/07/24 01:04
ALT 24 U/L (0-35) 07/07/24 01:04
Alkaline Phosphatase 108 U/L (38-126) 07/07/24 01:04
Lipase 245 U/L (23-300) 07/07/24 01:04
Data Reviewed
-
CT Scan: Report Reviewed by me
Lab Data: Labs Reviewed by me
Impression/Plan
-
IMPRESSION:
Patient is a 68 year old female with a past medical history significant for hyperlipidemia, hypertension, sick sinus syndrome and anxiety who presents to the emergency department with diffuse abdominal pain and vomiting.
PLAN:
Acute Appendicitis
- CT Abdomen/Pelvis with contrast, preliminary read - findings suspicious for early acute appendicitis. Appendix is dilated, measuring up to 13 mm in diameter, and partially fluid distended.
Minimal infiltration of the periappendiceal fat, axial images 63 through 65 and coronal images 30-32 best demonstrates
No signs of perforation or abscess formation. No other acute intra-abdominal process
Partially visualized cardiac pacemaker
Moderate stool burden, most pronounced in the right colon. Correlate for history of constipation
Colonic diverticulosis without signs of diverticulitis
- Admit to General Surgery, Dr. Argueta
- NPO
- IV fluids, NSS @ 75 mls/hr
- IV antibiotics, continued Zosyn from ED
- IV pain medications, IV antiemetics ordered
- Supportive care
Hyperlipidemia
- Continue home medication: Rosuvastatin
Hypertension
- Home medication on hold, resume post op as appropriate
Olmesartan/HCTZ
GERD
- Continue home medication: Nexium
Sick Sinus Syndrome
s/p pacemaker
Nicotine dependence
- Smokes 1/2 pack per day, for 30 years
- Pt offered nicotine patch, declined at this time
- Encourage smoking cessation
Code status: Full code
DVT Prophylaxis: Lovenox SQ- post op
[2024-07-07 06:33] LABS: Hematocrit 34.6 % (37.0-47.0); Hemoglobin 12.1 g/dL (12.0-16.0); Mean Corpuscular Hgb 31.8 pg (27.0-31.0); Mean Corpuscular Volume 90.8 fL (81.0-99.0); Mean Platelet Volume 9.7 fL (7.4-10.4); Platelet Count 286 10^3/uL (130-400); Red Blood Cell Count 3.81 10^6/uL (4.20-5.40); Red Cell Dist. Width 14.2 % (11.5-14.5); White Blood Cell Count 12.4 10^3/uL (4.8-10.8)
[2024-07-07 06:41] LABS: INR 0.98; PT 13.5 Sec (11.4-14.6)
[2024-07-07 06:42] LABS: Blood Urea Nitrogen 18 mg/dl (7-17); Calcium 9.4 mg/dl (8.4-10.2); Carbon Dioxide 24 mmol/L (22-30); Chloride 110 mmol/L (98-107); Estimated Creatinine Clearance 76 ml/min; Glucose 123 mg/dl (70-99); Potassium 4.2 mmol/L (3.5-5.1); Sodium 141 mmol/L (135-145); eGFR > 60.00
[2024-07-07] MEDS: CRESTOR 10 MG PO (07:34)
[2024-07-07] MEDS: PROTONIX 40 MG PO (07:34)
[2024-07-07] MEDS: TYLENOL 650 MG PO (08:47)
[2024-07-07] MEDS: NSS 500 IV (09:32)
[2024-07-07] MEDS: ZOSYN 50 IV ×3 (10:20→21:13)
--- NOTE | 2024-07-07 10:28 | W.SUR.PREOP ---
Pre-Operative Surgical Note
-
I have examined this patient prior to the performance of the scheduled procedure.
The patient's condition is unchanged from the time of the current History and
Physical and the patient is able to undergo the scheduled procedure.
--- NOTE | 2024-07-07 12:26 | W.IMMPOSTOP ---
Surgical Immed Post Op Note
-
Primary Surgeon: Arnaud Burns MD
Assisting Surgeon: None
Pre-op Diagnosis: Perforated appendicitis
Post-op Diagnosis: Same
Procedure Performed: Laparoscopic appendectomy
Anesthesia Type: General
Specimen / Cultures:
1. Appendix
2. vane-Appendiceal fluid for culture
Estimated Blood Loss: 3 cc
Complications: None
Operative Findings: Hemoperitoneum noted on entry emanating from perforation at the base of the appendix. Initial attempted ligating the base with the stapler was unsuccessful so the ostium of the appendix was suture-ligated closed with a 2-0
Vicryl pursestring suture. Followed by a horizontal mattress suture which was used to tack part of the ligament of Treves over our repair kirstin to a modified Shmuel patch. The terminal ileum inserted too close to the ostium to perform a partial
cecectomy. A 19 Setswana round Patrick drain was introduced through the left lower quadrant port, across the pelvis and up the right colic gutter. It was secured to the skin with a 2-0 nylon suture.
POST OP PLAN:
Imaging: None
Labs: Routine AM
Diet: Clears
Analgesia: Tylenol 650mg q6 Sarah, Aubree 5mg q6 PRN, Dilaudid 0.5mg q2h PRN
Neuro/vascular checks: q4h
AC/AP: Hold Therapeutic AC, Ok for DVT PPx
Activity: Ad Marcela
Wound/Incisions/Drains: Routine, FRANK to bulb suction
Abx: Continue antibiotics x 4 days
Dispo: RNF
--- NOTE | 2024-07-07 12:32 | OR.RPT ---
Operative Report
Operative Report
Patient Name: Joanne Little
: 1955
Date of Operation: 07/07/2024
Preoperative Diagnosis: Acute Appendicitis
Postoperative Diagnosis: Same
Procedure(s):
Laparoscopic Appendectomy
Surgeon(s):
Dr. Burns
Grand Jury Deputy Sheriff(s):
MIKI Eugene
Anesthesia: General
Estimated Blood Loss: 3 cc
Urine Output: None
Drains/Lines/Implants: 19 Palestinian round Patrick drain, up the right colic gutter.
Specimens:
1. Appendix
2. Periappendiceal fluid
HPI/Surgical Indications:
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 Exam, labs and imaging are consistent with acute appendicitis. Risks/Benefits/Alternatives were discussed at length, and the patient agreed to proceed with
surgery.
Operative Findings: Hemoperitoneum noted on entry emanating from perforation at the base of the appendix. Initial attempted ligating the base with the stapler was unsuccessful so the ostium of the appendix was suture-ligated closed with a 2-0
Vicryl pursestring suture. Followed by a horizontal mattress suture which was used to tack part of the ligament of Treves over our repair kirstin to a modified Shmuel patch. The terminal ileum inserted too close to the ostium to perform a partial
cecectomy. A 19 Palestinian round Patrick drain was introduced through the left lower quadrant port, across the pelvis and up the right colic gutter. It was secured to the skin with a 2-0 nylon suture.
Procedure Description:
The patient was placed in the supine position, with the left arm tucked, and general anesthesia was induced. The abdomen was prepared and draped in a sterile fashion so as to expose the entire abdomen. A surgical time out was taken. Abdominal access
was obtained with a left subcostal Veress technique which required a single pass followed by a 5 mm left lower quadrant Optiview trocar. After confirming no injury on entrance, a 5 mm port was placed in the suprapubic area just off midline and a 12
mm port just below the umbilicus. The patient was placed in Trendelenberg with the right slightly up. There was hemoperitoneum noted in the right lower quadrant. The appendix was identified and a window was created in the mesoappendix. The
appendix was gangrenous inflamed and perforated near the base of the appendix. The cecum however felt soft. The terminal ileum also appeared to be inserting very close to this area. Using a laparoscopic bipolar energy device, the meso appendix was
divided. The base of the appendix appeared uninvolved and was ligated/divided using a 45 Parmar Endo SANA. The appendix was placed in a specimen retrieval bag. Some of the fluid was also sent for culture. I was concerned regarding the integrity of the
repair and because the terminal ileum inserted so close, a limited cecectomy would not be possible. The ostium of the appendix was closed using a 2-0 Vicryl pursestring suture. I then used another 2-0 Vicryl horizontal mattress suture to further
close the defect and tack a piece of the ligament of Treves which I had mobilized to cover our repair kirstin to a modified Shmuel patch. Hemostasis was confirmed and a 19 Palestinian round Patrick drain was introduced through the left lower quadrant port
passed across the pelvis and up the right colic gutter. It was secured at the skin with a 2-0 nylon suture. The 12 mm periumbilical port was closed with a 0 PDS [id number]. All ports were removed under visualization and closed at the skin
with 4-0 Monocryl followed by Dermabond. The patient was awoken from anesthesia in good condition and transported to the recovery area.
I was the attending physician and performed the procedure with assistance from the ONBOARDING SPECIALIST above. I was present for all portions of the case excluding skin closure.
Arnaud Burns MD
[2024-07-07] MEDS: DILAUDID 0.25 MG IV ×3 (13:23→17:36)
--- NOTE | 2024-07-07 14:28 | W.PN.SURGUPD ---
Addendum entered and electronically signed by Arnaud Burns MD 07/13/24 09:03:
The update should read: 'Transfer initiated for hypotension secondary to sepsis which was present on admission'
Addendum entered and electronically signed by Arnaud Burns MD 07/12/24 08:46:
Transfer initiated for hypotension secondary to sepsis
Original Note:
Surgical Update
Surgical Update
Brief General Surgery update note:
Paged regarding relatively asymptomatic hypotension in PACU.
Patient mentating well, not complaining of any abdominal pain but her blood pressure is ranging from the 70s to the 90s over 50. This was repeated on the contralateral arm with the same readings. She has gotten 4 L of fluid as the initial thought
was this could be from hypovolemia given her recent nausea vomiting, however the patient states that she had similar hypotension few weeks ago when she came in with a UTI. Her intraoperative findings were not particularly impressive but she did
have perforated appendicitis which could be setting off a SIRS/septic response.
Okay for clears, will continue IV fluids at 100 cc/h.
Hospitalist consulted, possible transfer to the ICU for possible pressor/ BP augmentation
Insert Valenzuela
EKG
Will get blood work CBC, lactate, blood culture
Patient and son updated.
--- NOTE | 2024-07-07 14:56 | CON.HOSP ---
Consultation
-
Date/Time Consultation Requested: 07/07/2024 at 1427
Date/Time Consultation Performed: 07/07/2024 at 1435
Requesting Provider: Dr. Burns
Performing Provider: Dr. Metz
Reason for Consultation: hypotension
Family Physician
-
Family Physician: Berto Gross
Chief Complaint
-
abd pain
History of Present Illness
68-year female extensive past medical history as below overnight with complaint of severe abdominal pain and vomiting. Patient stated she ate dinner and subsequently right after which she fell nauseous and had episode of vomiting. Patient stated
pain was uncontrollable and thus decided come into the ER. Prior to eating dinner patient was feeling fine. Patient states she was ambulating prior to the event without any problems. Patient was seen by general surgery and patient underwent to
the operating room for laparoscopic appendectomy. Patient with hypotension and received aggressive IV fluid resuscitation. In PACU patient with blood pressure of mid 80s and we were consulted for further management. Upon my evaluation in the
PACU, patient is awake alert and oriented. Patient is mentating fine. Patient was able to give entire history. Patient blood pressure has improved with MAP of 65 without phenylephrine usage. Patient was receiving 1/4 L of normal saline. Patient
received Zosyn earlier. Currently states of abdominal pain and some lightheadedness. Says she has a history of severe hypotension in the past.
Medical History
Past Medical History
Past Medical History: Reports Other
Additional Past Medical History:
Primary HTN
Anxiety
HLD
SSS s/p PPM
Hx of renal stones
tobacco abuse
Past Surgical History: Reports Other
Additional Past Surgical History:
hysterectomy (1998)
bladder suspension (1998)
tonsillectomy (2004)
uvulectomy (2004)
cervical discectomy and fusion (2014)
pacemaker
bilateral total knee replacements
Social History
Tobacco: Smoker (1/2 PPD for 30 years )
Alcohol: Occasional (twice a month-wine or gin )
Living: With Family
Family History
Family History: Reviewed & Not Pertinent
Allergies / Home Medications
Allergies reflects when Allergies were last updated in [facility].
Home Medications with original date entered in [facility]
Allergy/Medication List:
Allergies
Allergy/AdvReac Type Severity Reaction Status Date / Time
irbesartan Allergy joint pain Verified 07/07/24 00:25
simvastatin Allergy Unknown Verified 07/07/24 00:25
Home Medications
rosuvastatin 10 mg tablet 10 mg PO DAILY High Cholesterol 01/01/15
Prevagen 1 cap PO DAILY 06/21/24
acetaminophen 325 mg tablet (Tylenol) 650 mg PO Q6HPRN PRN mild pain/fever 06/21/24
docusate sodium 100 mg tablet (Stool Softener) 100 mg PO DAILY Constipation 06/21/24
esomeprazole magnesium 20 mg capsule,delayed release (Nexium 24HR) 20 mg PO DAILY Gastrointestinal Issue 06/21/24
olmesartan 20 mg-hydrochlorothiazide 12.5 mg tablet 1 tab PO DAILY Blood Pressure 06/21/24
lbthceh-vvoqcegqjlwhk-jeckhqez 250 mg-250 mg-65 mg tablet (Excedrin Migraine) 2 tab PO Q6HPRN PRN migraine/pain 07/07/24
Review of Systems
-
History Source: Patient
A 12 point Review of Systems was completed except as noted: Yes
Physical Exam
Vital Signs
Vital Signs
Temp Pulse Resp BP Pulse Ox
97.2 F 74 20 84/48 95
07/07/24 14:33 07/07/24 14:35 07/07/24 14:35 07/07/24 14:35 07/07/24 14:48
Physical Exam
General: Well Developed, Well Nourished and No Apparent Distress
HEENT: Normocephalic, Moist Mucous Membranes, Atraumatic and Oxygen
Respiratory: Clear (anterior )
Cardiac: S1/S2 and Regular Rhythm; Negative Murmur or Rub
GI: Soft, Non Distended, Normal Bowel Sounds and Tender (FRANK drain )
Rectal: Deferred by Provider
Musculoskeletal: No Clubbing, No Cyanosis and No Edema
Skin: Negative Rash
Neuro: Awake, Alert, Oriented, AO x 3, No Motor Deficits and Nonfocal/Grossly Intact
Psych: Calm
Laboratory Results
-
Laboratory Results
07/07/24 06:19
PT 13.5 Sec (11.4-14.6) 07/07/24 06:19
INR 0.98 07/07/24 06:19
Lactic Acid 1.5 mmol/L (0.7-2.0) 07/07/24 01:04
Total Bilirubin 0.4 mg/dl (0.2-1.3) 07/07/24 01:04
AST 23 U/L (14-36) 07/07/24 01:04
ALT 24 U/L (0-35) 07/07/24 01:04
Alkaline Phosphatase 108 U/L (38-126) 07/07/24 01:04
Lipase 245 U/L (23-300) 07/07/24 01:04
Data Reviewed
-
CT Scan: Report Reviewed by Me and Discussed with Patient
Lab Data: Labs Reviewed and Discussed with Patient
Impression / Plan
-
#Septic shock likely 2/2 perforated appendicitis
#Leukocytosis
Status post 2 L of IV fluids and receiving 4 L currently
Agree with pressors with phenylephrine if needed for MAP greater than 65
Follow-up on the blood culture data
Follow-up on the wound culture data from the OR
Op report noted
Monitor FRANK drain output
NPO. Pain control. Maintenance IV fluid
Incentive spirometry once abdominal pain improves
Other postop care per primary surgery
Lactic acid within normal limits
Valenzuela catheter being inserted shortly. Monitor urine output
Primary HTN
Hold blood pressure medication for now as with hypotension
Tobacco abuse
Counseled on cessation
Nicotine patch if patient request. Currently due to acuity and hold off
HLD
Restart once able to take p.o. meds
DVT prophylaxis SCDs for now and can start chemical prophylaxis per surgery
Full code
Discussed with primary team
Okay for IMU for now
I spent a total of 80 minutes with the patient or on the floor. More than 50% of this time involved counseling and coordination of care.
[2024-07-07 15:05] LABS: Hematocrit 31.2 % (37.0-47.0); Hemoglobin 10.6 g/dL (12.0-16.0); Mean Corpuscular Hgb 31.8 pg (27.0-31.0); Mean Corpuscular Volume 93.7 fL (81.0-99.0); Platelet Count 242 10^3/uL (130-400); Red Blood Cell Count 3.33 10^6/uL (4.20-5.40); Red Cell Dist. Width 14.7 % (11.5-14.5); White Blood Cell Count 16.4 10^3/uL (4.8-10.8)
[2024-07-07 15:19] LABS: Lactic Acid 1.9 mmol/L (0.7-2.0)
--- NOTE | 2024-07-07 17:05 | PTCARENOTE ---
Rec'd pt from PACU. BP improved upon arrival to IMU with Sys 102. Abdominal pain present but improved with Pain meds given in PACU. Tolerating clear liquid diet. Oriented to IMU. Family at bedside.
--- NOTE | 2024-07-07 22:12 | PTCARENOTE ---
Patient aaox3 at start of shift. Patient c/o pain 8-9/10 to central lower abdomen at start of shift, prn dilaudid administered per order. Patient verbalized effectiveness shortly after. C/o pain 7-8/10 again around 2129. Second prn dose
administered. Patient currently resting in bed with observed comfort. Patient nsr on the monitor, lungs noted with slight crackles 1/[address] way up b/l. RN instructed in deep breathing exercises and provided patient with incentive spirometer. Patient able
to get to 1500 on I.S. States she has not been coughing due to abdominal discomfort. RN provided patient with cough pillow and related instructions provided. Son at bedside for short period of time. Patient noted to have some forgetfulness and both
patient and son state forgetfulness r/to pain medication. Bed alarm set for safety. Valenzuela cath intact and draining clear, yellow urine. Bowel sounds hypoactive x4. FRANK drain to LLQ draining serosanguenous fluid, emptied for 15ml a short time ago.
Will continue to monitor patient closely.
[2024-07-08] VITALS (24 sets, daily range): BP systolic 97–136; BP diastolic 57–98
[2024-07-08] MEDS: NSS 1000 IV ×2 (01:12→12:50)
[2024-07-08] MEDS: DILAUDID 0.25 MG IV ×2 (01:19→06:43)
[2024-07-08] MEDS: ZOSYN 50 IV ×4 (03:55→21:26)
[2024-07-08 04:42] LABS: % Basophils 0.3 % (0-2); % Eosinophils 0.1 % (0-6); % Immature Granulocytes 0.4 % (0-0.5); % Lymphocytes 8.1 % (20.5-51.1); % Neutrophils 88.1 % (42.2-75.2); Absolute Immature Granulocytes 0.1 10^3/uL (0-0.05); Absolute Lymphocytes 1.1 10^3/uL (1.2-3.4); Absolute Monocytes 0.4 10^3/uL (0.1-0.6); Absolute Neutrophils 11.6 10^3/uL (1.4-6.5); Hematocrit 32.2 % (37.0-47.0); Hemoglobin 11.4 g/dL (12.0-16.0); Mean Corp Hgb Conc. 35.4 g/dL (33.0-37.0); Mean Corpuscular Hgb 31.7 pg (27.0-31.0); Mean Corpuscular Volume 89.4 fL (81.0-99.0); Mean Platelet Volume 9.9 fL (7.4-10.4); Nucleated Red Blood Cells % 0 %; Platelet Count 221 10^3/uL (130-400); Red Cell Dist. Width 14.8 % (11.5-14.5); White Blood Cell Count 13.2 10^3/uL (4.8-10.8)
[2024-07-08 04:56] LABS: Blood Urea Nitrogen 13 mg/dl (7-17); Calcium 8.1 mg/dl (8.4-10.2); Carbon Dioxide 23 mmol/L (22-30); Chloride 109 mmol/L (98-107); Estimated Creatinine Clearance 88 ml/min; Glucose 120 mg/dl (70-99); Sodium 141 mmol/L (135-145); eGFR > 60.00
[2024-07-08] MEDS: PROTONIX 40 MG PO (08:54)
[2024-07-08] MEDS: DILAUDID 0.5 MG IV ×4 (08:54→21:27)
[2024-07-08] MEDS: TYLENOL 650 MG PO (08:55)
--- NOTE | 2024-07-08 09:08 | W.PN.GS2 ---
Today's Communication / Plan
-
Clear liquids
VT
Assessment / Plan
-
68 yo female who presented with acute appendicitis with perforation now POD #1 lap appendectomy
Admitted to IMU post operatively d/t hypotension. BP better today, intermittently low normal
Afebrile, no tachycardia
S/P 4L of fluid boluses, good UO
CX pending
FRANK with purulent SSF
High risk for ileus
--Clear liquids
--Continue with IV ABX, blood/OR cx pending
--D/C leyva for voiding trial
--Medicine following with us, appreciate recs
--OOB/ambulate
--Lovenox and scds for vte ppx
--Analgesics prn
Tentative transfer out of IMU later today if BP remains stable
Subjective Data
-
Date of Service: July 08, 2024
Patient seen and examined at bedside with Dr. Burns. Denies n/v. Passing flatus, no BM yet. Still with significant pelvis discomfort but manageable with current regimen.
Objective Data
-
Intake and Output
07/07/24 07/08/24 07/09/24
06:59 06:59 06:59
Intake Total 5600 / 5600
Output Total 3065 / 3065
Balance 2535 / 2535
Intake:
IV fluids (Total) 5500 / 5500
IV piggybacks 100 / 100
Output:
Drain Output (Total) 40 / 40
Left Lower Abdomen Destin- 40 / 40
Bland
Urine, Leyva 2325 / 2325
Urine, Voided 700 / 700
Vital Signs
Temp Pulse Resp BP Pulse Ox
98.6 F 60 13 121/64 91
07/08/24 07:18 07/08/24 06:00 07/08/24 06:00 07/08/24 06:00 07/08/24 06:00
Lab Results
07/08/24 04:16
07/08/24 04:16
Calcium 8.1 mg/dl (8.4-10.2) L 07/08/24 04:16
Total Bilirubin 0.4 mg/dl (0.2-1.3) 07/07/24 01:04
AST 23 U/L (14-36) 07/07/24 01:04
ALT 24 U/L (0-35) 07/07/24 01:04
Alkaline Phosphatase 108 U/L (38-126) 07/07/24 01:04
Total Protein 7.3 g/dl (6.3-8.2) 07/07/24 01:04
Albumin 4.8 g/dl (3.5-5.0) 07/07/24 01:04
Physical Exam
-
NAD
ABD soft, nd, tender to lower abdomen, FRANK with murky ssf
Incisions with intact glue, no erythema
--- NOTE | 2024-07-08 10:58 | CM ---
Met with patient at bedside
IA completed
OBS form explained & signed. In chart
autumn garcia this am
Sons live with patient in a 1 story home, 3 steps to enter
PLOF: Independent
DME: judith Davila
Denies VN/REHAB
PCP: Berto Gross
Pharmacy: [address], [place]
PLAN: home, no needs
--- NOTE | 2024-07-08 11:46 | W.PN.HOSP.TC ---
Today's Communication/Plan
-
Clears
Monitor for diet tolerance
Monitor blood pressure
Continue with IV antibiotics
Follow-up on the culture data
Assessment / Plan
Assessment / Plan
#Septic shock likely 2/2 perforated appendicitis
#Leukocytosis
Status post aggressive IV fluid resuscitation in OR and PACU.
Has not required pressors so far. Blood pressure stable
Follow-up on the blood culture data
Follow-up on the wound culture data from the OR
Op report noted
Monitor FRANK drain output
Clears for now pain control. Maintenance IV fluid
Incentive spirometry
Other postop care per primary surgery
Lactic acid within normal limits
Continue with PPI
Trial of voiding today
Primary HTN
Hold blood pressure medication for now as with hypotension
Tobacco abuse
Counseled on cessation
Nicotine patch if patient request. Currently due to acuity and hold off
HLD
Restart restart in the next 24 to 48 hours.
DVT prophylaxis Lovenox
Full code
Agree with transfer out of IMU to [facility].
Anticipated Discharge: > 48 hours
Subjective/Interval History
-
Date of Service: July 08, 2024
Patient stated abdominal pain increased after drinking earlier today.
After little bit period of time the abdominal pain decreased to 5 out of 10
Passing flatulence
No bowel movements
Denies severe lightheadedness
Patient blood pressures improved
Has not required phenylephrine so far
Objective Data
-
Labs:
Laboratory Results
07/08/24
04:16
WBC 13.2 H
Hgb 11.4 L
Hct 32.2 L
Plt Count 221
Sodium 141
Potassium 4.0
Chloride 109 H
Carbon Dioxide 23
BUN 13
Creatinine 0.6
Glucose 120 H
Calcium 8.1 L
Vital Signs:
Vital Signs
Temp Pulse Resp BP Pulse Ox
98.6 F 60 13 121/64 91
07/08/24 07:18 07/08/24 06:00 07/08/24 06:00 07/08/24 06:00 07/08/24 06:00
I&O
07/07/24 07/08/24 07/09/24
06:59 06:59 06:59
Intake Total 5600 / 5600
Output Total 3065 / 3065 650 / 650
Balance 2535 / 2535 -650 / -650
Physical Exam
-
General: Well Developed and No Apparent Distress
HEENT: Normocephalic, Atraumatic and Moist Mucous Membranes
Respiratory: Clear to Auscultation
Cardiac: Regular Rhythm and S1/S2; Negative Murmur, Rub or Gallop
GI: Soft, Nondistended, Normal Bowel Sounds and Other (FRANK drain with mild purulent drainage noted); Negative Organomegaly
Rectal: Deferred by Provider
Musculoskeletal: No Clubbing, No Cyanosis and No Edema
Skin: Negative Rash
Neuro: Awake, AO x 3, No Motor Deficits and Nonfocal/Grossly Intact
Psych: Calm
Data Reviewed
-
Total Time Spent with Patient (in minutes): 55
--- NOTE | 2024-07-08 11:50 | PTCARENOTE ---
Patient AAOx3. See mar for pain medication regimen. VSS. FRANK drain and surgical sites CDI. Valenzuela pulled and patient has voided. Patient reports passing gas, abdominal bloating and distention after eating breakfast CLD. Patient actively using IS. On
RA, sats 95%. Will continue to closely monitor.
[2024-07-08] MEDS: ZOFRAN 4 MG IV (15:02)
--- NOTE | 2024-07-08 15:23 | W.PN.SURGUPD ---
Surgical Update
Surgical Update
S: Called by nursing as patient with increasing distention and nausea. At bedside patient reports belching and mild nausea with indigestion. Passing flatus up until about 2 hours ago.
O: POD #1 lap appi with perforated appendix noted intraoperatively. FRANK with purulent SSF, unchanged from this am. ABD with mild to moderate distention. Soft, mild tenderness at incisions. AFVSS.
A: Suspect pt. developing ileus which is not unexpected given her intraoperative findings.
P: Will make NPO with ice chips for comfort. Zofran given. Continue IVF. Analgesics/antiemetics prn. Will give IV Pepcid x1 dose. Hold off on NGT at this point, but may need one if develops vomiting.
[2024-07-08] MEDS: PEPCID 20 MG IV (16:14)
[2024-07-08] MEDS: NSS (PRESERVATIVE FREE) 8 ML IV (16:14)
[2024-07-08] MEDS: LOVENOX 40 MG SC (18:06)
[2024-07-08] MEDS: COMPAZINE 5 MG IV (21:35)
--- NOTE | 2024-07-08 22:08 | PTCARENOTE ---
Patient aao x3 at start of shift, ambulating hallway with standby assist x1. Gait stable. Patient verbalizes some discomfort to abdomen with ambulation, decreases at rest. Patient c/o nausea and 9/10 pain to mid lower abdomen a short time ago. PRN
dilaudid administered with positive results. Contacted Hermelinda PERKINS regarding antinausea medications as patient had prolonged qt on ekg 07/07. New order provided for prn compazine rather than prn zofran. PRN compazine administered with
positive results as well. Patient states she washed up earlier today as well. FRANK drain dressing with shadowing noted. Dressing changed per orders, FRANK drain site c/d/i, no s/s of infection noted. FRANK draining serosanguenous fluid at this time. Patient
continues to use I.S., crackles remain 1/[address] up b/l lungs, however, improved. Pox 93-96% on ra. Left hand IV infilrated earlier this shift. IV removed and IV team contacted. New IV placed in left forearm. NSS running at 75ml/hr. Will continue to
monitor patient closely.
[2024-07-09] VITALS (13 sets, daily range): BP systolic 115–153; BP diastolic 53–90
[2024-07-09] MEDS: ZOSYN 50 IV ×4 (02:51→21:32)
[2024-07-09] MEDS: DILAUDID 0.25 MG IV (02:51)
[2024-07-09] MEDS: NSS 1000 IV ×2 (02:52→21:32)
[2024-07-09 05:07] LABS: % Basophils 0.9 % (0-2); % Eosinophils 2.6 % (0-6); % Immature Granulocytes 0.4 % (0-0.5); % Lymphocytes 24.5 % (20.5-51.1); % Monocytes 3.7 % (1.7-9.3); % Neutrophils 67.9 % (42.2-75.2); Absolute Basophils 0.1 10^3/uL (0-0.2); Absolute Eosinophils 0.2 10^3/uL (0-0.7); Absolute Lymphocytes 2.2 10^3/uL (1.2-3.4); Absolute Monocytes 0.3 10^3/uL (0.1-0.6); Absolute Neutrophils 6.1 10^3/uL (1.4-6.5); Hemoglobin 9.8 g/dL (12.0-16.0); Mean Corp Hgb Conc. 32.7 g/dL (33.0-37.0); Mean Corpuscular Hgb 30.4 pg (27.0-31.0); Mean Corpuscular Volume 93.2 fL (81.0-99.0); Nucleated Red Blood Cells % 0 %; Platelet Count 188 10^3/uL (130-400); Red Blood Cell Count 3.22 10^6/uL (4.20-5.40); Red Cell Dist. Width 14.9 % (11.5-14.5); White Blood Cell Count 8.9 10^3/uL (4.8-10.8)
[2024-07-09] MEDS: DILAUDID 0.5 MG IV ×5 (05:07→17:20)
[2024-07-09 05:32] LABS: Blood Urea Nitrogen 8 mg/dl (7-17); Calcium 8.1 mg/dl (8.4-10.2); Carbon Dioxide 23 mmol/L (22-30); Chloride 112 mmol/L (98-107); Estimated Creatinine Clearance 76 ml/min; Glucose 104 mg/dl (70-99); Potassium 3.8 mmol/L (3.5-5.1); Sodium 141 mmol/L (135-145); eGFR > 60.00
[2024-07-09] MEDS: PROTONIX IV 40 MG IV (08:30)
[2024-07-09] MEDS: NSS (PRESERVATIVE FREE) 10 ML IV (08:30)
[2024-07-09] MEDS: PROTONIX PO (11:26)
--- NOTE | 2024-07-09 11:53 | W.PN.HOSP.TC ---
Today's Communication/Plan
-
N.p.o.
Diet per surgery
IV fluids
Encourage ambulation
Assessment / Plan
Assessment / Plan
#Septic shock likely 2/2 perforated appendicitis
#Leukocytosis -resolved
# Suspected postop ileus
Status post aggressive IV fluid resuscitation in OR and PACU.
Has not required pressors so far. Blood pressure stable
Follow-up on the blood culture data-remains negative so far
Follow-up on the wound culture data from the OR-polymicrobial (E. coli, Enterococcus)
Op report noted
Monitor FRANK drain output
Continue with IV fluids. Patient currently NPO.
Incentive spirometry
Other postop care per primary surgery
Lactic acid within normal limits
Continue with PPI
Trial of voiding today
Primary HTN
Hold blood pressure medication for now as with hypotension
Tobacco abuse
Counseled on cessation
Nicotine patch if patient request. Currently due to acuity and hold off
HLD
Restart restart in the next 24 to 48 hours.
DVT prophylaxis Lovenox
Full code
Agree with transfer out of IMU to [facility].
Anticipated Discharge: > 48 hours
Subjective/Interval History
-
Date of Service: July 09, 2024
States the abdominal pain has improved compared to yesterday
No flatulence and bowel movements today
Ambulating in the hallway
Objective Data
-
Labs:
Laboratory Results
07/09/24
04:41
WBC 8.9
Hgb 9.8 L
Hct 30.0 L
Plt Count 188
Sodium 141
Potassium 3.8
Chloride 112 H
Carbon Dioxide 23
BUN 8
Creatinine 0.7
Glucose 104 H
Calcium 8.1 L
Vital Signs:
Vital Signs
Temp Pulse Resp BP Pulse Ox
99.3 F 60 19 142/75 81
07/09/24 08:00 07/09/24 11:30 07/09/24 11:30 07/09/24 11:00 07/09/24 11:30
I&O
07/08/24 07/09/24 07/10/24
06:59 06:59 06:59
Intake Total 5600 / 5600 1180 / 1180 50 / 50
Output Total 3065 / 3065 797 / 797 59 / 59
Balance 2535 / 2535 383 / 383 -9 / -9
Physical Exam
-
General: Well Developed and No Apparent Distress
HEENT: Normocephalic, Atraumatic and Moist Mucous Membranes
Respiratory: Clear to Auscultation
Cardiac: Regular Rhythm and S1/S2; Negative Murmur, Rub or Gallop
GI: Soft, Nondistended, Normal Bowel Sounds and Other (FRANK drain with serosanguineous drainage); Negative Organomegaly
Rectal: Deferred by Provider
Musculoskeletal: No Clubbing, No Cyanosis and No Edema
Skin: Negative Rash
Neuro: Awake, AO x 3, No Motor Deficits and Nonfocal/Grossly Intact
Psych: Calm
--- NOTE | 2024-07-09 12:41 | W.PN.GS2 ---
Today's Communication / Plan
-
transfer to med surg floor
Assessment / Plan
-
68 yo female who presented with acute appendicitis with perforation now POD #2 lap appendectomy
Admitted to IMU post operatively d/t hypotension, which has resolved
AFVSS
Final OR CX pending, blood cx with NGTD
FRANK with purulent SSF
Ileus present await bowel recovery
--Sips of clears
--Continue with IV ABX, follow cx
--Medicine following with us, appreciate recs
--OOB/ambulate
--Lovenox and scds for vte ppx
--Analgesics prn
Transfer to med surg
Subjective Data
-
Date of Service: July 09, 2024
Patient seen and examined at bedside with Dr. Philip. Ramos n/v. Belching and distention improving. Has not passed flatus today. Pain improving.
Objective Data
-
Intake and Output
07/08/24 07/09/24 07/10/24
06:59 06:59 06:59
Intake Total 5600 / 5600 1180 / 1180 50 / 50
Output Total 3065 / 3065 797 / 797 59 59
Balance 2535 / 2535 383 / 383 -9 / -9
Intake:
Oral fluids 180 / 180
IV fluids (Total) 5500 / 5500 900 / 900
IV piggybacks 100 / 100 100 / 100 50 / 50
Output:
Drain Output (Total) 40 / 40 147 / 147
Left Lower Abdomen Destin- 40 / 147 / 147
Bland
Urine, Valenzuela 2325 / 2325 650 / 650
Urine, Voided 700 / 700
Other:
Number of approximated MODERATE 2
amounts of urine
Vital Signs
Temp Pulse Resp BP Pulse Ox
98.1 F 60 19 142/75 81
07/09/24 12:05 07/09/24 11:30 07/09/24 11:30 07/09/24 11:00 07/09/24 11:30
Lab Results
07/09/24 04:41
07/09/24 04:41
Calcium 8.1 mg/dl (8.4-10.2) L 07/09/24 04:41
Total Bilirubin 0.4 mg/dl (0.2-1.3) 07/07/24 01:04
AST 23 U/L (14-36) 07/07/24 01:04
ALT 24 U/L (0-35) 07/07/24 01:04
Alkaline Phosphatase 108 U/L (38-126) 07/07/24 01:04
Total Protein 7.3 g/dl (6.3-8.2) 07/07/24 01:04
Albumin 4.8 g/dl (3.5-5.0) 07/07/24 01:04
Physical Exam
-
NAD
ABD soft, mild distention, NT, [employer]
Incisions well approximated, intact glue and no erythema
FRANK with clear serous fluid
--- NOTE | 2024-07-09 14:01 | PTCARENOTE ---
Medicating patient with IV dilaudid for abdominal pain rating 8/10. Pain worse at left side where FRANK drain is located. Pain well controlled with medication. Patient ambulating to bathroom and in the halls with stand by assistance. Patient
remains NPO except for ice chips and sips. VS stable. Valenzuela d/c yesterday, voiding adequate amounts without difficulty.
[2024-07-09] MEDS: DIFLUCAN 200 MG 100 IV (14:16)
--- NOTE | 2024-07-09 15:22 | PTCARENOTE ---
Report given to Cherise COWAN. Patient transferred to [address] [place] [address] [id number] in [address]. All belongings with the patient.
[2024-07-09] MEDS: LOVENOX 40 MG SC (17:17)
[2024-07-09] MEDS: TYLENOL 650 MG PO (21:37)
[2024-07-10] MEDS: ZOSYN 50 IV ×4 (04:33→21:44)
[2024-07-10 07:32] LABS: % Basophils 0.6 % (0-2); % Eosinophils 2.6 % (0-6); % Immature Granulocytes 0.3 % (0-0.5); % Lymphocytes 16.5 % (20.5-51.1); % Monocytes 5.5 % (1.7-9.3); % Neutrophils 74.5 % (42.2-75.2); Absolute Basophils 0.1 10^3/uL (0-0.2); Absolute Eosinophils 0.2 10^3/uL (0-0.7); Absolute Lymphocytes 1.5 10^3/uL (1.2-3.4); Absolute Monocytes 0.5 10^3/uL (0.1-0.6); Absolute Neutrophils 6.7 10^3/uL (1.4-6.5); Hematocrit 30.9 % (37.0-47.0); Hemoglobin 10.6 g/dL (12.0-16.0); Mean Corp Hgb Conc. 34.3 g/dL (33.0-37.0); Mean Corpuscular Hgb 30.9 pg (27.0-31.0); Mean Corpuscular Volume 90.1 fL (81.0-99.0); Mean Platelet Volume 10.5 fL (7.4-10.4); Nucleated Red Blood Cells % 0 %; Platelet Count 211 10^3/uL (130-400); Red Blood Cell Count 3.43 10^6/uL (4.20-5.40); Red Cell Dist. Width 13.7 % (11.5-14.5)
[2024-07-10 07:35] VITALS: BP 148/71
[2024-07-10] MEDS: PROTONIX IV 40 MG IV (08:10)
[2024-07-10] MEDS: NSS (PRESERVATIVE FREE) 10 ML IV (08:10)
[2024-07-10] MEDS: TYLENOL 650 MG PO ×2 (08:16→14:43)
[2024-07-10 08:25] VITALS: BMI 25.6
[2024-07-10 08:47] LABS: ALT (SGPT) 20 U/L (0-35); AST (SGOT) 23 U/L (14-36); Albumin 3.2 g/dl (3.5-5.0); Alkaline Phosphatase 122 U/L (38-126); Blood Urea Nitrogen 9 mg/dl (7-17); Calcium 8.3 mg/dl (8.4-10.2); Carbon Dioxide 17 mmol/L (22-30); Chloride 110 mmol/L (98-107); Estimated Creatinine Clearance 88 ml/min; Glucose 59 mg/dl (70-99); Magnesium 1.8 mg/dl (1.6-2.3); Phosphorus 3.4 mg/dl (2.5-4.5); Potassium 3.3 mmol/L (3.5-5.1); Sodium 139 mmol/L (135-145); Total Bilirubin 0.7 mg/dl (0.2-1.3); Total Protein 5.4 g/dl (6.3-8.2); eGFR > 60.00
--- NOTE | 2024-07-10 09:17 | W.PN.GS2 ---
Addendum entered and electronically signed by Arnaud Burns MD 07/10/24 10:20:
I saw and examined the patient independently.
The resident's documentation was reviewed and I agree with the note, assessment and plan except where noted below.
Comment: This is a 68-year-old female status post appendectomy for acute appendicitis. Doing well, expected postoperative course.
Will advance to clears today, may advance to a regular diet later this afternoon.
Anticipate discharge home tomorrow with an additional 3-day course of oral antibiotics and possible FRANK removal prior to discharge if it continues to look serous.
All questions answered, patient agreeable with plan of care above.
Original Note:
Today's Communication / Plan
-
Transition to full liquid diet
Cont zosyn
Assessment / Plan
-
68 yo female who presented with acute appendicitis with perforation now POD #3 lap appendectomy
AFVSS
Final OR CX reveals G (-) bacilli, Escherichia coli, enterococcus species and yeast.
FRANK with clear serous drainage
Passing dion, awaiting bowel movement
--transition to full liquid diet
--Continue with zosyn to cover G (-) bacilli
--Medicine following with us, appreciate recs
--OOB/ambulate
--Lovenox and scds for vte ppx
--Analgesics prn
Likely able to remove FRANK drain tmrw.
Subjective Data
-
Date of Service: July 10, 2024
Feels well, wants to advance diet, getting out of bed and walking around a lot.
Objective Data
-
Intake and Output
07/09/24 07/10/24 07/11/24
06:59 06:59 06:59
Intake Total 1180 / 1180 1375 / 1375
Output Total 797 / 797 199 / 199
Balance 383 / 383 1176 / 1176
Intake:
Oral fluids 180 / 180
IV fluids (Total) 900 / 900 1125 / 1125
IV piggybacks 100 / 100 250 / 250
Output:
Drain Output (Total) 147 / 147 199 / 199
Left Lower Abdomen Destin- 147 / 147 199 / 199
Bland
Urine, Valenzuela 650 / 650
Other:
Number of approximated MODERATE 2 3
amounts of urine
Vital Signs
Temp Pulse Resp BP Pulse Ox
98.3 F 61 18 148/71 97
07/10/24 07:35 07/10/24 07:35 07/10/24 07:35 07/10/24 07:35 07/10/24 07:35
Lab Results
07/10/24 06:29
07/10/24 06:29
Calcium 8.3 mg/dl (8.4-10.2) L 07/10/24 06:29
Phosphorus 3.4 mg/dl (2.5-4.5) 07/10/24 06:29
Magnesium 1.8 mg/dl (1.6-2.3) 07/10/24 06:29
Total Bilirubin 0.7 mg/dl (0.2-1.3) 07/10/24 06:29
AST 23 U/L (14-36) 07/10/24 06:29
ALT 20 U/L (0-35) 07/10/24 06:29
Alkaline Phosphatase 122 U/L (38-126) 07/10/24 06:29
Total Protein 5.4 g/dl (6.3-8.2) L 07/10/24 06:29
Albumin 3.2 g/dl (3.5-5.0) L 07/10/24 06:29
Physical Exam
-
Ab soft, mild distension, non-tender
FRANK drain in RRL with clear serous fluid - no signs of infx around insertion
No signs of infx around surgical sites
[2024-07-10] MEDS: KCL 270 MEQ IV (09:32)
--- NOTE | 2024-07-10 12:34 | CM ---
Patient out of room to further testing. CM will continue to follow for discharge planning needs.
--- NOTE | 2024-07-10 14:22 | W.PN.HOSP.TC ---
Today's Communication/Plan
-
IV Zosyn and follow final culture result
Consider transition to Augmentin for 7-day postoperative course
Advance diet per surgery recommendation
CBC and temperature curve
Monitor blood pressure
Assessment / Plan
Assessment / Plan
#Septic shock likely 2/2 acute appendicitis with perforation
#Suspected postop ileus
-Status post aggressive IV fluid resuscitation in OR and PACU.
-Follow-up on the blood culture data-remains negative so far
-Follow-up on the wound culture data from the OR-polymicrobial (E. coli, Enterococcus)
-Op report noted
-Monitor FRANK drain output
-CLD for now, advance at surgery's discretion
-Incentive spirometry
-Other postop care per primary surgery
-Continue with PPI
-Continue with Zosyn for now, consider Augmentin as stepdown agent for 7-day postoperative course
#Primary HTN
-Home medications include olmesartan-hydrochlorothiazide
-Home blood pressures were held due to initial septic shock
-Most recent blood pressure 148/71 mmHg, will continue to monitor and resume home medications as needed
#Tobacco abuse
-Counseled on cessation
-Nicotine patch if patient request
#HLD
-Home regimen includes moderate intensity rosuvastatin
-When tolerating full diet
DVT prophylaxis: Lovenox
Diet: Clear liquid diet
CODE STATUS: Full code
Anticipated Discharge: 24 - 48 hours
Subjective/Interval History
-
Date of Service: July 10, 2024
Seen and examined at the bedside. Was walking around the room. No acute events overnight. AFVSS this morning
Patient states she is doing well today. Recently started on clear liquid diet. States she is passing flatus though no bowel movements
Denies any new complaints today
Objective Data
-
Labs:
Laboratory Results
07/10/24
06:29
WBC 9.0
Hgb 10.6 L
Hct 30.9 L
Plt Count 211
Sodium 139
Potassium 3.3 L
Chloride 110 H
Carbon Dioxide 17 L
BUN 9
Creatinine 0.6
Glucose 59 L
Calcium 8.3 L
Total Bilirubin 0.7
AST 23
ALT 20
Alkaline Phosphatase 122
Vital Signs:
Vital Signs
Temp Pulse Resp BP Pulse Ox
98.3 F 61 18 148/71 97
07/10/24 07:35 07/10/24 07:35 07/10/24 07:35 07/10/24 07:35 07/10/24 07:35
I&O
07/09/24 07/10/24 07/11/24
06:59 06:59 06:59
Intake Total 1180 / 1180 1375 / 1375
Output Total 797 / 797 199 / 199
Balance 383 / 383 1176 / 1176
Review of Systems
-
History Source: Patient
All other systems: Reviewed and negative
Physical Exam
-
General: Well Developed, Well Nourished, No Apparent Distress and Comfortable
HEENT: Normocephalic, Atraumatic and Moist Mucous Membranes
Respiratory: Clear to Auscultation and Non Labored Respirations
Cardiac: Regular Rhythm and S1/S2; Negative Murmur, Rub or Gallop
GI: Soft, Nontender, Nondistended and Normal Bowel Sounds
Musculoskeletal: No Clubbing, No Cyanosis, No Edema and Normal Gait & Station
Skin: Warm, Dry and Normal Turgor; Negative Rash
Neuro: AO x 3 and Nonfocal/Grossly Intact
Psych: Calm
Data Reviewed
-
Labs: Labs Reviewed by me and Discussed with Patient
[2024-07-10] MEDS: DIFLUCAN 200 MG 100 IV (14:41)
[2024-07-10] MEDS: BENICAR 20 MG PO (14:48)
[2024-07-10] MEDS: ORETIC 12.5 MG PO (14:49)
[2024-07-10 15:10] VITALS: BP 167/80
[2024-07-10] MEDS: NSS IV (16:17)
[2024-07-10] MEDS: LOVENOX 40 MG SC (17:01)
[2024-07-10] MEDS: ROXICODONE 5 MG PO (18:38)
[2024-07-10 23:15] VITALS: BP 113/54
[2024-07-11] MEDS: ROXICODONE 5 MG PO (03:23)
[2024-07-11] MEDS: ZOSYN 50 IV ×2 (03:23→09:44)
[2024-07-11 07:20] VITALS: BP 161/77
[2024-07-11] MEDS: ORETIC 12.5 MG PO (08:01)
[2024-07-11] MEDS: NSS (PRESERVATIVE FREE) 10 ML IV (08:01)
[2024-07-11] MEDS: TYLENOL 650 MG PO (08:01)
[2024-07-11] MEDS: PROTONIX IV 40 MG IV (08:01)
[2024-07-11] MEDS: BENICAR 20 MG PO (08:01)
[2024-07-11] MEDS: SUDAFED 30 MG PO (09:44)
--- NOTE | 2024-07-11 10:06 | CM ---
Patient seen at bedside. Patient for discharge home today. Patient indicated that she had signed up for Medicare and completed IMM, signed form placed on chart. Patient to transport home today. CM will continue to follow for discharge
planning needs.
Plan;home with family no needs.
--- NOTE | 2024-07-11 11:54 | W.PN.HOSP.TC ---
Today's Communication/Plan
-
Transition to oral antibiotic
No contraindications to discharge from medicine perspective
Assessment / Plan
Assessment / Plan
#Septic shock likely 2/2 acute appendicitis with perforation
#Suspected postop ileus
-Status post aggressive IV fluid resuscitation in OR and PACU.
-Follow-up on the blood culture data-remains negative so far
-Follow-up on the wound culture data from the OR-polymicrobial (E. coli, Enterococcus)
-Op report noted
-Monitor FRANK drain output
-CLD for now, advance at surgery's discretion
-Incentive spirometry
-Other postop care per primary surgery
-Continue with PPI
-Continue with Zosyn for now, consider Augmentin as stepdown agent for 5-7 day post-op course
#Primary HTN
-Home medications include olmesartan-hydrochlorothiazide
-Home blood pressures were held due to initial septic shock
-Most recent blood pressure 148/71 mmHg, will continue to monitor and resume home medications as needed
#Tobacco abuse
-Counseled on cessation
-Nicotine patch if patient request
#HLD
-Home regimen includes moderate intensity rosuvastatin
-When tolerating full diet
DVT prophylaxis: Lovenox
Diet: Clear liquid diet
CODE STATUS: Full code
Anticipated Discharge: Within 24 hours
Subjective/Interval History
-
Date of Service: July 11, 2024
Seen and examined at the bedside. No acute events reported overnight. AFVSS this morning
Complains of a little bit of sinus pressure this morning that responded to Sudafed
Denies any new complaints this morning
Objective Data
-
Vital Signs:
Vital Signs
Temp Pulse Resp BP Pulse Ox
99.0 F 61 16 161/77 97
07/11/24 07:20 07/11/24 07:20 07/11/24 07:20 07/11/24 07:20 07/11/24 07:59
I&O
07/10/24 07/11/24 07/12/24
06:59 06:59 06:59
Intake Total 1375 / 1375 840 / 840
Output Total 199 / 199
Balance 1176 / 1176 820 / 820
Review of Systems
-
History Source: Patient
All other systems: Reviewed and negative
Physical Exam
-
General: Well Developed, No Apparent Distress and Comfortable
HEENT: Normocephalic, Atraumatic and Moist Mucous Membranes
Respiratory: Clear to Auscultation and Non Labored Respirations
Cardiac: Regular Rhythm; Negative Murmur, Rub or Gallop
GI: Soft, Nontender, Nondistended and Normal Bowel Sounds
Musculoskeletal: No Clubbing, No Cyanosis and No Edema
Skin: Warm, Dry and Normal Turgor; Negative Rash
Neuro: AO x 3 and Nonfocal/Grossly Intact
Psych: Calm
Data Reviewed
-
Labs: Labs Reviewed by me and Discussed with Patient
--- NOTE | 2024-07-11 12:02 | W.PN.GS2 ---
Addendum entered and electronically signed by Arnaud Burns MD 07/11/24 12:21:
Will do Bactrim instead of Cipro Flagyl due to Cipro's cross-reactivity with Diflucan. 4 more days of Bactrim, 12 more days of Diflucan.
Original Note:
Today's Communication / Plan
-
Dispo planning
Assessment / Plan
-
68 yo female who presented with acute appendicitis with perforation now POD #4 lap appendectomy. Doing well, expected postoperative course.
Will discharge home today with a 4-day course of Cipro Flagyl and a 2-week course of Diflucan given cultures and sensitivities.
Patient will follow-up with me in 2 weeks.
Discharge instructions reviewed with patient, patient agreeable to plan of care above.
Subjective Data
-
Date of Service: July 11, 2024
Interval Events:
No acute events overnight. Slept well. Pain Controlled. Denies Nausea/Vomiting, +bowel function. Tolerating diet.
Objective Data
-
Intake and Output
07/10/24 07/11/24 07/12/24
06:59 06:59 06:59
Intake Total 1375 / 1375 840 / 840
Output Total 199 / 199 20 / 20
Balance 1176 / 1176 820 / 820
Intake:
Oral fluids 840 / 840
IV fluids (Total) 1125 / 1125
IV piggybacks 250 / 250
Output:
Drain Output (Total) 199 / 199 20 / 20
Left Lower Abdomen Destin- 199 / 199 20 /
Bland
Other:
Number of approximated MODERATE 3 4
amounts of urine
Number of unmeasured liquid
stools
Rectum 5
Vital Signs
Temp Pulse Resp BP Pulse Ox
99.0 F 61 16 161/77 97
07/11/24 07:20 07/11/24 07:20 07/11/24 07:20 07/11/24 07:20 07/11/24 07:59
Lab Results
07/10/24 06:29
07/10/24 06:29
Calcium 8.3 mg/dl (8.4-10.2) L 07/10/24 06:
Phosphorus 3.4 mg/dl (2.5-4.5) 07/10/24:
Magnesium 1.8 mg/dl (1.6-2.3) 07/10/24 06:
Total Bilirubin 0.7 mg/dl (0.2-1.3) 07/10/24:
AST 23 U/L (14-36) 07/10/24 06:
ALT 20 U/L (0-35) 07/10/24 06:29
Alkaline Phosphatase 122 U/L (38-126) 07/10/24 06:29
Total Protein 5.4 g/dl (6.3-8.2) L 07/10/24 06:
Albumin 3.2 g/dl (3.5-5.0) L 07/10/24 06:29
Physical Exam
-
GENERAL/NEURO: Awake, Alert, no distress
CHEST: Unlabored breathing on RA
ABDOMEN: Soft, Non-Tender, Non-Distended, incisions clean dry and intact. FRANK with still serous output, removed at the bedside.
Patient has a leyva catheter: No
Patient has a central line: No
[2024-07-11 13:20] VITALS: BP 164/89
--- NOTE | 2024-07-11 14:28 | PN.CDI ---
CDI
- -
CDI:
Physician Documentation Request
Admit Date: 07/07/24 04:33
Dear Doctor Grant,
Patient admitted for acute perforated appendicitis and underwent Laparoscopic appendectomy.
Surgeon was called for 'relatively asymptomatic hypotension in PACU......Her intraoperative findings were not particularly impressive but she did have perforated appendicitis which could be setting off a SIRS/septic response.'
No pressors were started.
Hospitalist was consulted and reports 'Septic shock likely 2/2 acute appendicitis with perforation'
07/09 Surgical progress note states 'Admitted to IMU post operatively d/t hypotension, which has resolved'
Patient has remained afebrile, heart rate 60s-70s, respiratory rate 13-39
WBC
Laboratory Tests
07/07/24 07/07/24 07/07/24
01:04 06:19 14:52
WBC 16.6 H 12.4 H 16.4 H
In an attempt to clarify potentially conflicting documentation, please clarify the diagnosis related to hypotension
Postoperative shock
Shock, unknown type
Septic shock
Hypotension only- indicate type/etiology, such as idiopathic, neurogenic or orthostatic, post-procedural, postoperative, due to hemodialysis, chronic, drug induced (indicate drug), etc.
Other
Use of terms such as suspected, likely, concern for, or probable (associated with a specific diagnosis that is being evaluated, monitored, or treated as if it exists) are acceptable and can be coded in the inpatient setting, when documented at the
time of discharge.
Thank you,
Chloe Linda RN, BSN
CDI Specialist
tiger text
Please use your independent medical judgment in providing your response.
--- NOTE | 2024-07-12 11:59 | PN.CDI ---
CDI
- -
CDI:
Physician Documentation Request
Admit Date: 07/07/24 04:33
Dear Doctor Grant,
Patient admitted for acute perforated appendicitis.
Patient transfer to ICU post op for hypotension secondary to sepsis
Patient has remained afebrile, presenting heart rate 60s-70s, respiratory rate 18-34
WBC
Laboratory Tests
07/07/24 07/07/24 07/07/24
01:04 06:19 14:52
WBC 16.6 H 12.4 H 16.4 H
Please clarify the following:
Sepsis was present on admission
Sepsis was not present on admission
Unable to determine
�Sepsis
-Systemic manifestations of infection, with 2 or more SIRS criteria which include:
-Fever > 100.4��F or hypothermia < 96.8��F
-Leukocytosis WBC > 12,000 or leukopenia, WBC < 4,000, or > 10% bands
-Tachycardia- > 90 beats/minute
-Tachypnea- RR > 20 breaths/minute or PaCO2 < 32mmHg
Source: [employer] Manual 2013
Use of terms such as suspected, likely, concern for, or probable (associated with a specific diagnosis that is being evaluated, monitored, or treated as if it exists) are acceptable and can be coded in the inpatient setting, when documented at the
time of discharge.
Thank you,
Chloe Linda RN, BSN
CDI Specialist
tiger text
Please use your independent medical judgment in providing your response.
--- NOTE | 2024-07-14 09:07 | W.DCSUMMARY ---
Discharge Summary
Discharge Data
Date of Admission: 07/07/24
Date of Discharge: 07/11/24
-
Pending Results: No
Hospital Course
Ms Little is a 68 yo female who presented through the ED with RLQ pain with imaging and exam consistent with acute appendicitis. She was taken to the OR for laparoscopic appendectomy with perforation at base of appendix noted intraoperatively. A
FRANK drain was left in place intraoperatively and able to be removed prior to discharge. Cultures were taken in the ED with antibiotics given throughout admission and upon discharge based on sensitivities. In the perioperative period, she was noted to
be hypotensive and was placed in IMU for management with noted improvement with IV fluids. She had noted ileus and diet was advanced once this resolved with good bowel recovery noted. Pain was minimal and well managed with oral agents prior to
discharge.
Discharge Plan
-
Patient Disposition: Home (Routine Discharge)
Discharge Diagnosis/Procedures: Laparoscopic appendectomy
Condition: Good
Diet: As tolerated and Regular
Activity: No strenuous activity
Bathing Restrictions: OK to Shower
Activity Restrictions/Additional Instructions:
Instructions following Laparoscopic appendectomy
Please call [phone] if you have any questions or concerns after your surgery.
Wound Care:
Your incisions are covered with skin glue which will come off on it�s own in 5-10 days.
It is ok to shower the day after your surgery. Do not scrub the incisions, let soap and water wash over them and pat dry.
� Bruising around your incisions is normal.
� Using ice packs will help minimize this swelling.
� No swimming or soaking incisions for 1 week.
� Your stitches will dissolve and do not need to be removed.
Urinary retention:
If you are unable to urinate 6-8 hours after your surgery, please call [phone] to discuss further management.
Activity:
No heavy lifting more than 15 pounds for the next 3 weeks, then you may gradually lift heavier objects as tolerated by discomfort. Otherwise activity as tolerated by your comfort level.
Pain Management:
Use Tylenol, ibuprofen and ice packs to treat your pain.
� You may take 650 milligrams of Tylenol (Max 3 grams per day) every 6 hours, and 600 mg of ibuprofen also every 6 hours. (you can alternate them every 3 hours)
� You may use an ice pack to your incision as needed.
� If you still have pain not controlled by these measures, take your prescription pain medication as prescribed.
Medications:
You may resume your home medications.
Bowel Medications:
Prescription pain medication can make you constipated. If you take this medication, also take colace 100 mg twice daily (this is over the counter). If this is not sufficient, you may take Miralax (polyethylene glycol) to help move your bowels.
Diet:
After your procedure, there are no dietary restrictions.
Driving restrictions:
No driving if you are taking prescription pain medication or if you think your normal reaction time and attentiveness has been slowed by your surgery.
Things to Look out for:
Worsening Abdominal pain, redness or drainage from incision
Call Doctor for:
Please call if you notice worsening redness or drainage from incision(s) lasting longer than 5 days after your surgery, any foul-smelling drainage from the incision, pain not controlled by pain medications, persistent nausea and vomiting, or for any
fevers greater than 101.3 F. The number for questions/concerns is [phone]
Follow-up:
Follow-up appointment will be scheduled with your surgeon in 3-4 weeks. Please call prior to your appointment if you have any questions or concerns. [phone]
Referrals:
Arnaud Burns MD [Active] - in two to four weeks
Berto Gross MD [Family Provider] -
Prescriptions:
New
acetaminophen 325 mg tablet
650 mg PO Q6HPRN PRN (Reason: mild pain) Qty: 14 0RF
tramadol 50 mg tablet
25 mg PO Q6HPRN PRN (Reason: severe pain/breakthrough pain) Qty: 8 0RF
ibuprofen 600 mg tablet
600 mg PO Q6H PRN (Reason: pain) Qty: 14 0RF
sulfamethoxazole-trimethoprim [Bactrim] 400-80 mg tablet
1 tab PO BID Qty: 8 0RF
fluconazole [Diflucan] 200 mg tablet
200 mg PO DAILY 12 Days Qty: 24 0RF
Continued
rosuvastatin 10 MG tablet
10 mg PO DAILY
acetaminophen [Tylenol] 325 mg Tablet
650 mg PO Q6HPRN PRN (Reason: mild pain/fever)
docusate sodium [Stool Softener] 100 mg Tablet
100 mg PO DAILY
esomeprazole magnesium [Nexium 24HR] 20 mg Capsule,Delayed Release(Dr/Ec)
20 mg PO DAILY
olmesartan-hydrochlorothiazide 20-12.5 mg Tablet
1 tab PO DAILY
Prevagen capsule
1 cap PO DAILY
Excedrin Migraine 250-250-65 mg Tablet
2 tab PO Q6HPRN PRN (Reason: migraine/pain)
Discharge Orders:
Discharge Patient (As Directed); Ordered 07/11/24
Ordered By: Arnaud Burns
Discharge Date and Time
Discharge Date/Time: 07/11/24 13:30
Print Language: AUSTRIAN
== END 2024-07-11 13:30 | disposition home or self-care (01) | DRG 853 ==
LOC: 2 SOUTH 04:33
PROVIDERS: Nurse Practitioner Family; Registered Nurse; Surgery; ADMITTING PHYSICIAN Surgery; EMERGENCY PHYSICIAN Student in an Organized Health Care Education/Training Program; FAMILY PHYSICIAN Family Medicine; OTHER PHYSICIAN Hospitalist
PROC: 0DTJ4ZZ Resection of Appendix, Percutaneous Endoscopic Approach (ICD-10-PCS; 2024-07-07)
DX: A41.51 Sepsis due to Escherichia coli [E. coli] (principal); K35.32 Acute appendicitis with perforation, localized peritonitis, and gangrene, without abscess; K66.1 Hemoperitoneum; R65.21 Severe sepsis with septic shock; K91.89 Other postprocedural complications and disorders of digestive system; K56.7 Ileus, unspecified; K59.00 Constipation, unspecified; K57.30 Diverticulosis of large intestine without perforation or abscess without bleeding; E78.49 Other hyperlipidemia; B95.2 Enterococcus as the cause of diseases classified elsewhere; I10 Essential (primary) hypertension; K21.9 Gastro-esophageal reflux disease without esophagitis; F41.9 Anxiety disorder, unspecified; F17.210 Nicotine dependence, cigarettes, uncomplicated; I95.81 Postprocedural hypotension; Y83.8 Other surgical procedures as the cause of abnormal reaction of the patient, or of later complication, without mention of misadventure at the time of the procedure; Z96.653 Presence of artificial knee joint, bilateral; Z98.1 Arthrodesis status; Z90.710 Acquired absence of both cervix and uterus; Z88.8 Allergy status to other drugs, medicaments and biological substances; Z95.0 Presence of cardiac pacemaker; Z87.442 Personal history of urinary calculi; Z87.440 Personal history of urinary (tract) infections
CPT/HCPCS: 88304; 74177; 80048; 80053; 81003; 81015; 83605; 83690; 83735; 84100; 85025; 85027; 85610; 87040; 87070; 87075; 87077; 87186; 87205; 93005; 96361; 96365; 96375; 99284; C1776; Q9967